=== PATIENT | female | born 1995 | race Caucasian/White ===

== ENCOUNTER → 2018-09-12 | Outpatient (CLI) | payer OTHER ==
--- NOTE | 2018-09-12 10:49 | US ---
EXAMINATION TYPE: US transvaginal DATE OF EXAM: 09/12/2018 COMPARISON: NONE CLINICAL HISTORY: N92.8 Irregular Menstruation. TECHNIQUE: . Transvaginal sonographic images of the pelvis were acquired. Date of LMP: About 2 weeks ago EXAM MEASUREMENTS: Uterus: 7.9 x 3.3 x 4.9 cm Endometrial Stripe: 1.0 cm Right Ovary: 4.1 x 2.5 x 3.0 cm Left Ovary: 2.2 x 1.3 x 1.1 cm 1. Uterus: Anteverted Nabothian cysts visualized. Small amount of fluid visualized in cervix 2. Endometrium: wnl 3. Right Ovary: Cystic area visualized measuring 2.1 x 1.8 x 1.7 cm 4. Left Ovary: wnl 5. Bilateral Adnexa: wnl 6. Posterior cul-de-sac: Small amount of free fluid visualized IMPRESSION: 1. Probable functional right ovarian cyst which can be confirmed with follow-up study in 6 weeks. 2. Small amount of free fluid noted.
== END | disposition home or self-care (01) ==
LOC: RADUSWWP 09:56
PROVIDERS: ATTEND Family Medicine
DX: N92.6 Irregular menstruation, unspecified (principal)
CPT/HCPCS: 76830

== ENCOUNTER 2019-11-04 05:35 | Inpatient (IN) | payer OTHER ==
--- NOTE | 2019-11-03 12:24 | P.HPOB ---
History of Present Illness H&P Date: 11/03/19 Chief Complaint: Requested induction of labor. This patient is a pleasant 24-year-old 1 para 0 female estimated date of confinement 11/11/2019 estimated gestational age 39-0/7 weeks who presents to labor and delivery for requested induction of labor. Patient's care has been uncomplicated. She is being followed for large for gestational age but most recent ultrasound approximately 4 days ago shows estimated weight of 8 lbs. 7 oz. Patient has requested induction of labor at this time. Review of Systems Genitourinary: Reports Menstruation: Reports amenorrhea Past Medical History Past Medical History: No Reported History History of Any Multi-Drug Resistant Organisms: None Reported Past Surgical History: Adenoidectomy Past Psychological History: No Psychological Hx Reported Smoking Status: Never smoker Past Alcohol Use History: None Reported Past Drug Use History: None Reported Medications and Allergies Home Medications Medication Instructions Recorded Confirmed Type No Known Home Medications 02/21/15 02/21/15 History Allergies Allergy/AdvReac Type Severity Reaction Status Date / Time No Known Allergies Allergy Verified 02/21/15 19:06 Exam - OBG Physical Exam Abdomen: bowel sounds normal, no diffuse tenderness, no bruit present, no guarding noted, no hepatomegaly, no splenomegaly, no mass Vulva: both: normal Vagina: normal moisture, no discharge Cervix: no lesion (Cervix in the office is 2 cm dilated 50% effaced -2 station.), no discharge Uterus: enlarged (Fundal height 39 cm) Results blood work shows she is A positive, rubella immune, RPR nonreactive, hepatitis B negative, HIV is nonreactive, Glucola was normal, group B strep was negative, ultrasound on October 30 showed 8 lbs. 7 oz. Assessment and Plan Assessment: This is a pleasant 24-year-old 1 para 0 female 39-0/7 weeks gestation who presents to labor and delivery for requested induction of labor. Plan is induction of labor and anticipate vaginal delivery. (1) 39 weeks gestation of Status: Acute Code(s): Z3A.39 - 39 WEEKS GESTATION OF SNOMED Code(s): 70256611 (2) Elective induction of labor planned Status: Acute Code(s): UHV2789 - SNOMED Code(s): 971018836
[2019-11-04] MEDS ORDERED: OXYTOCIN 30 UNITS/500 ML NS 30 UNIT in SALINE 1 500ML.BAG IV SCH (05:51)
[2019-11-04] MEDS ORDERED: METHYLERGONOVINE 0.2 MG/ML 1 ML AMP IM PRN (05:51)
[2019-11-04] MEDS ORDERED: LIDOCAINE 0.5% (PF) 5 MG/ML (50 ML SDV) SQ PRN (05:51)
[2019-11-04] MEDS ORDERED: OXYTOCIN 10 UNIT/ML 1 ML VIAL IM PRN (05:51)
[2019-11-04] MEDS ORDERED: CARBOPROST TROMETHAMINE 250 MCG/ML 1 ML AMP IM PRN (05:51)
[2019-11-04] MEDS ORDERED: TERBUTALINE 1 MG/ML VIAL SQ PRN (05:51)
[2019-11-04] MEDS: LACTATED RINGERS 1,000 ML IV SCH ×2 (06:11→13:48)
[2019-11-04 06:45] LABS: Basophils % (A) 0 %; Eosinophils # (A) 0.1 k/uL (0-0.7); Eosinophils % (A) 1 %; HCT 33.7 % (34.0-46.0); HGB 11.1 gm/dL (11.4-16.0); Lymphocytes # (A) 2.6 k/uL (1.0-4.8); Lymphocytes % (A) 25 %; MCHC 32.8 g/dL (31.0-37.0); MCV 88.4 fL (80.0-100.0); Monocytes # (A) 0.5 k/uL (0-1.0); Monocytes % (A) 5 %; Neutrophils # (A) 6.8 k/uL (1.3-7.7); Neutrophils % (A) 66 %; Platelet Count 214 k/uL (150-450); RBC 3.82 m/uL (3.80-5.40); RDW 12.7 % (11.5-15.5); WBC 10.2 k/uL (3.8-10.6)
[2019-11-04] MEDS ORDERED: BUTORPHANOL 1 MG/ML 1 ML VIAL IV PRN (11:57)
[2019-11-04] MEDS ORDERED: fentaNYL (PF) 50 MCG/ML 5 ML AMP ONE (13:26)
[2019-11-04] MEDS ORDERED: ROPIVACAINE 5MG/ML 20ML VIAL ONE (13:26)
[2019-11-04] MEDS ORDERED: SODIUM CHLORIDE 0.9% 100 ML BAG ONE (13:26)
[2019-11-04] MEDS ORDERED: SIMETHICONE 80 MG CHEWABLE PO PRN (17:19)
[2019-11-04] MEDS ORDERED: ZOLPIDEM 5 MG TAB PO PRN (17:19)
[2019-11-04] MEDS ORDERED: diphenhydrAMINE 50 MG/ML 1 ML VIAL IVP PRN (17:19)
[2019-11-04] MEDS ORDERED: LANOLIN CREAM 5 GM TUBE TOPICAL PRN (17:19)
[2019-11-04] MEDS ORDERED: ACETAMINOPHEN TAB 325 MG TAB PO PRN (17:19)
[2019-11-04] MEDS ORDERED: BISACODYL 10 MG SUPP RECTAL PRN (17:19)
[2019-11-04] MEDS ORDERED: HYDROCORTISONE 2.5% RECTAL CREAM 30 GM TUBE RECTAL PRN (17:19)
[2019-11-04] MEDS ORDERED: diphenhydrAMINE 25 MG CAP PO PRN (17:19)
[2019-11-04] MEDS ORDERED: BENZOCAINE/MENTHOL SPRAY 1 GM/SPRAY AEROSOL TOPICAL PRN (17:19)
[2019-11-04] MEDS ORDERED: OXYTOCIN 20 UNITS/1000 ML NS 1,000 ML IV SCH (17:19)
[2019-11-04] MEDS ORDERED: WITCH HAZEL 1 EACH MED..PAD TOPICAL PRN (17:19)
--- NOTE | 2019-11-04 17:28 | P.PROBDLV ---
Vaginal Delivery Note - . Vaginal Delivery Note: Normal spontaneous vaginal delivery viable male infant Apgars 8 and 9 delivery time is 1657 hrs. Please see dictated H&P for intimate details of this patient's admission. Brief summary is a pleasant 24-year-old 1 para 0 female 39 weeks gestation admitted to labor and delivery for requested induction of labor. On admission patient's to banner dilated has artificial rupture membranes for clear fluid. Labor is induced with Pitocin per protocol. Patient's labor progresses she does get an epidural for pain control. Patient gets to complete pushes for approximately 30 minutes. Posterior perineum was constricted therefore infiltration 1% lidocaine is a second degree episiotomy is made. We then have controlled delivery of the infant's head over the perineum. There is a loose nuchal cord. Mouth and nares are bulb suctioned. With gentle downward traction we then have delivery the anterior posterior shoulder and rest this 's body. This is a vigorous viable male . Apgars are 8 and 9 delivery time is 1657 hrs. After delivery of the the is late the mother's abdomen. Cord is allowed to stop pulsating, it is then doubly clamped and cut. Patient did have a proximal a 1 cm benign nevus of her perineum and I discussed with her removing this and she had anesthesia and therefore this was removed with a 15 blade scalpel and 2 sutures of 4-0 Vicryl. With this done the placenta spontaneously delivered intact inspection of the perineum shows a second-degree laceration is repaired with 3-0 Vicryl usual fashion excellent reapproximation is noted. This completed final inspection shows no defects. All counts correct 3. Infant and mother stable delivery room. There are no complications.
[2019-11-05] MEDS: IBUPROFEN 600 MG TAB PO PRN (03:03)
[2019-11-05] MEDS: SENNOSIDES-DOCUSATE SODIUM 1 EACH TAB PO SCH ×4 (04:03→19:53)
--- NOTE | 2019-11-05 06:55 | P.PNOBGVD ---
Subjective - Subjective Patient reports: Reports appetite normal, Reports voiding normally, Reports pain well controlled, Reports ambulating normally : doing well Objective - Latest Vital Signs Latest vital signs: Vital Signs Temp Pulse Resp BP 11/05/19 04:00 98.3 F 90 16 118/65 11/05/19 00:00 98.2 F 120 H 16 116/60 11/04/19 20:00 98.2 F 100 16 114/59 11/04/19 19:17 98.2 F 100 16 114/59 11/04/19 18:47 98.4 F 93 16 125/63 11/04/19 18:17 87 16 112/57 11/04/19 18:02 87 16 126/59 11/04/19 17:47 90 16 113/59 11/04/19 17:32 98.2 F 98 16 105/59 11/04/19 17:17 99 16 108/55 Intake and Output 11/04/19 11/04/19 11/05/19 14:59 22:59 06:59 Other: # Voids 1 1 1 - Exam Lungs: bilateral: normal Chest: Normal S1, Normal S2 Extremities: Present: normal Abdomen: Present: normal appearance, soft Uterus: Present: normal, firm Assessment and Plan Assessment: Post day #1. Patient is resting without complaints. She wishes to go home. Vital signs are stable she is afebrile. Uterus is firm nontender and she is having normal lochia. My impression is a normal course. Plan is to continue routine care discharge home later today. (1) 39 weeks gestation of Current Visit: No Status: Acute Code(s): Z3A.39 - 39 WEEKS GESTATION OF SNOMED Code(s): 60450497 (2) Elective induction of labor planned Current Visit: No Status: Acute Code(s): UTC2979 - SNOMED Code(s): 561586608
--- NOTE | 2019-11-05 06:58 | P.DS ---
Providers Date of admission: 11/04/19 05:35 Expected date of discharge: 11/05/19 Attending physician: Jean Ford Primary care physician: Stated None - Discharge Diagnosis(es) (1) 39 weeks gestation of Current Visit: No Status: Acute (2) Elective induction of labor planned Current Visit: No Status: Acute Hospital Course: Please see dictated H&P for intimate details of this patient's admission. Brief summary this is a pleasant 24-year-old 1 para 0 female 39 weeks gestation admitted to labor and delivery for induction of labor. Patient is admitted she undergoes uncomplicated induction of labor was on have a vaginal delivery viable male . Please see dictated delivery note. day #1 patient without complaints she wishes to go home. Patient's felt be stable for discharge home follow up with me in 1 week for suture removal on her her knee him and then 6 weeks for check. Procedures: Induction of labor normal vaginal delivery Patient Condition at Discharge: Good Plan - Discharge Summary New Discharge Prescriptions: New Ibuprofen [Motrin] 600 mg PO Q6HR PRN #30 tab PRN Reason: Mild Pain Or Fever >= 100.5 No Action Pnv,Calcium 72/Iron/Folic Acid [ Plus Tablet] 1 tab PO DAILY Discharge Medication List Pnv,Calcium 72/Iron/Folic Acid [ Plus Tablet] 1 tab PO DAILY 11/04/19 [History] Ibuprofen [Motrin] 600 mg PO Q6HR PRN #30 tab 11/05/19 [Rx] Follow up Appointment(s)/Referral(s): Jean Ford MD [STAFF PHYSICIAN] - 12/22/19 10:45 am (Patient also see me in approximately 1 week for suture removal on her perineum.) Patient Instructions/Handouts: Vaginal Delivery (DC) Activity/Diet/Wound Care/Special Instructions: No intercourse or anything per vagina for 6 weeks. Please call if any fever, chills, excessive vaginal bleeding, and/or abdominal pain. Discharge Disposition: HOME SELF-CARE
[2019-11-06] MEDS: IBUPROFEN 600 MG TAB PO PRN ×2 (00:08→07:32)
--- NOTE | 2019-11-06 06:33 | P.PNOBGVD ---
Subjective - Subjective Patient reports: Reports appetite normal, Reports voiding normally, Reports pain well controlled, Reports ambulating normally : doing well Objective - Latest Vital Signs Latest vital signs: Vital Signs Temp Pulse Resp BP 11/06/19 00:00 98.7 F 75 16 115/66 11/05/19 16:00 98.1 F 76 16 113/70 11/05/19 08:00 98.1 F 73 16 110/72 Intake and Output 11/05/19 11/05/19 11/06/19 14:59 22:59 06:59 Other: # Voids 1 2 1 - Exam Lungs: bilateral: normal Chest: Normal S1, Normal S2 Extremities: Present: normal Abdomen: Present: normal appearance, soft Uterus: Present: normal, firm Assessment and Plan Assessment: day #2. Patient is resting without complaints. She elected to stay until today. Vital signs are stable she is afebrile. Uterus is firm nontender she's having normal lochia. My impression is normal course. Plan is to continue routine care discharge home later today (1) 39 weeks gestation of Current Visit: No Status: Acute Code(s): Z3A.39 - 39 WEEKS GESTATION OF SNOMED Code(s): 80521105 (2) Elective induction of labor planned Current Visit: No Status: Acute Code(s): XPC2470 - SNOMED Code(s): 897287086
[2019-11-06] MEDS: SENNOSIDES-DOCUSATE SODIUM 1 EACH TAB PO SCH (07:31)
[2019-11-06 07:43] VITALS: BP 119/68; PULSE 79; RESP 18; TEMP 97.9
== END 2019-11-06 10:35 | disposition home or self-care (01) | DRG 807 ==
LOC: 4FBP 05:35
PROVIDERS: ADMIT Obstetrics & Gynecology; ATTEND Obstetrics & Gynecology
PROC: 0W8NXZZ Division of Female Perineum, External Approach (ICD-10-PCS; principal; 2019-11-04)
PROC: 10E0XZZ Delivery of Products of Conception, External Approach (ICD-10-PCS; 2019-11-04)
PROC: 10907ZC Drainage of Amniotic Fluid, Therapeutic from Products of Conception, Via Natural or Artificial Opening (ICD-10-PCS; 2019-11-04)
PROC: 3E033VJ Introduction of Other Hormone into Peripheral Vein, Percutaneous Approach (ICD-10-PCS; 2019-11-04)
PROC: 0HB9XZZ Excision of Perineum Skin, External Approach (ICD-10-PCS; 2019-11-04)
DX: O69.81X0 Labor and delivery complicated by cord around neck, without compression, not applicable or unspecified (principal); Z37.0 Single live birth; O36.63X0 Maternal care for excessive fetal growth, third trimester, not applicable or unspecified; Z3A.39 39 weeks gestation of pregnancy; D22.5 Melanocytic nevi of trunk
CPT/HCPCS: 85025; 86850; 86900; 86901

== ENCOUNTER 2023-11-19 09:11 | Inpatient (IN) | payer OTHER ==
[2023-11-19] MEDS ORDERED: TERBUTALINE 1 MG/ML VIAL SQ PRN (09:54)
[2023-11-19] MEDS ORDERED: OXYTOCIN 10 UNIT/ML 1 ML VIAL IM PRN (09:54)
[2023-11-19] MEDS ORDERED: miSOPROStoL 200 MCG TAB PO PRN (09:54)
[2023-11-19] MEDS ORDERED: TRANEXAMIC 1,000 MG/100ML-NACL 1,000 MG in EMPTY BAG 1 BAG IV PRN (09:54)
[2023-11-19] MEDS ORDERED: METHYLERGONOVINE 0.2 MG/ML 1 ML AMP IM PRN (09:54)
[2023-11-19] MEDS ORDERED: CARBOPROST TROMETHAMINE 250 MCG/ML 1 ML AMP IM PRN (09:54)
[2023-11-19] MEDS: LACTATED RINGERS 1,000 ML IV SCH (10:20)
[2023-11-19 10:44] LABS: Basophils % (A) 0 %; Eosinophils % (A) 0 %; HCT 37.6 % (34.0-46.0); HGB 12.5 gm/dL (11.4-16.0); Lymphocytes # (A) 1.9 k/uL (1.0-4.8); Lymphocytes % (A) 17 %; MCH 28.7 pg (25.0-35.0); MCHC 33.2 g/dL (31.0-37.0); MCV 86.5 fL (80.0-100.0); Mean Platelet Volume 7.9; Monocytes # (A) 0.4 k/uL (0-1.0); Monocytes % (A) 4 %; Neutrophils # (A) 8.3 k/uL (1.3-7.7); Neutrophils % (A) 77 %; Platelet Count 241 k/uL (150-450); RBC 4.34 m/uL (3.80-5.40); RDW 13.3 % (11.5-15.5); WBC 10.8 k/uL (3.8-10.6)
[2023-11-19] MEDS ORDERED: ROPIVACAINE 5 MG/ML 30 ML VIAL ONE (11:08)
[2023-11-19] MEDS ORDERED: fentaNYL (PF) 50 MCG/ML 5 ML AMP ONE (11:08)
[2023-11-19] MEDS ORDERED: SODIUM CHLORIDE 0.9% 250 ML BAG ONE (11:08)
--- NOTE | 2023-11-19 12:42 | P.HPOB ---
History of Present Illness H&P Date: 11/19/23 Chief Complaint: Contractions This is a 28-year-old female 3 para 1 with an estimated date of confinement of 11/26/2023, estimated gestational age of 39 weeks, who presents to labor and delivery with complaints of contractions that became stronger today. care has been with Dr. Ford. She was diagnosed with questionable low lying placenta at her 20 week ultrasound however this did resolve. She also had a slightly elevated one-hour Glucola but 3 hour Glucola was within normal limits. She admits to good movement and denies any rupture of membranes. labs: Group B streptococcus-negative Blood type-A+ Antibody screen-negative Rubella-immune Hepatitis B surface antigen-negative HIV-negative RPR-nonreactive Hepatitis C antibody-nonreactive Random glucose-71 Hepatitis B surface antigen-negative GC/chlamydia/Trichomonas-negative One hour Glucola-141, three-hour Glucola-within normal limits Obstetrical history: . History of 1 vaginal delivery at term with no complications. History of 1 miscarriage. Gynecologic history: No history of sexually transmitted diseases. Social history: She is . She works full-time as a [employer] manager. Review of Systems Constitutional: Denies chills, Denies fever Eyes: denies blurred vision, denies pain Ears, nose, mouth and throat: Denies headache, Denies sore throat Cardiovascular: Denies chest pain, Denies shortness of breath Respiratory: Denies cough Gastrointestinal: Reports abdominal pain (Contractions) Genitourinary: Reports pelvic pain, Reports Musculoskeletal: Reports low back pain Integumentary: Denies pruritus, Denies rash Neurological: Denies numbness, Denies weakness Psychiatric: Reports anxiety, Denies depression Past Medical History Past Medical History: No Reported History Additional Past Medical History / Comment(s): Previous term vaginal delivery 8 lbs. 9 oz. baby boy. History of Any Multi-Drug Resistant Organisms: None Reported Past Surgical History: Adenoidectomy Additional Past Surgical History / Comment(s): ear tubes placed x 2 Past Anesthesia/Blood Transfusion Reactions: No Reported Reaction Past Psychological History: Anxiety Smoking Status: Never smoker Past Alcohol Use History: None Reported Past Drug Use History: None Reported - Past Family History Father Family Medical History: No Reported History Sister(s) Family Medical History: Diabetes Mellitus Medications and Allergies Home Medications Medication Instructions Recorded Confirmed Type Vit No.180/Iron/Folic 1 tab PO DAILY 11/04/19 11/19/23 History [ Plus Tablet] Allergies Allergy/AdvReac Type Severity Reaction Status Date / Time No Known Allergies Allergy Verified 11/19/23 09:26 Exam Osteopathic Statement: *. No significant issues noted on an osteopathic structural exam other than those noted in the History and Physical/Consult. Vital Signs Temp Pulse Resp BP 11/19/23 10:16 96.9 F L 71 17 129/71 Intake and Output 11/18/23 11/19/23 11/19/23 22:59 06:59 14:59 Other: Weight 103.873 kg Gen.: Pleasant well-developed well-nourished gravid female in no acute distress HEENT: Within normal limits Heart: Regular rate and rhythm Lungs: Clear to auscultation bilaterally Abdomen: Cervix: On admission was 5-6 cm. Currently she is 7 cm 90%/-2 station. Artificial rupture membranes is carried out with thin meconium noted. heart tones: Category 1 Contractions: Every 3-5 minutes Extremities: Negative Homans Results Result Diagrams: 11/19/23 10:20 Abnormal Lab Results - Last 24 Hours (Table) 11/19/23 Range/Units 10:20 WBC 10.8 H (3.8-10.6) k/uL Neutrophils # 8.3 H (1.3-7.7) k/uL Assessment and Plan (1) 39 weeks gestation of Current Visit: No Status: Acute Code(s): Z3A.39 - 39 WEEKS GESTATION OF SNOMED Code(s): 85437699 Plan: Admission for active labor. Expectant management. Epidural anesthesia.
[2023-11-19] MEDS: OXYTOCIN 30 UNITS/500 ML NS 30 UNIT in SALINE 1 500ML.BAG IV SCH (15:08)
[2023-11-19] MEDS ORDERED: diphenhydrAMINE 25 MG CAP PO PRN (15:53)
[2023-11-19] MEDS ORDERED: diphenhydrAMINE 50 MG CAP PO PRN (15:53)
[2023-11-19] MEDS ORDERED: SIMETHICONE 80 MG CHEWABLE PO PRN (15:53)
[2023-11-19] MEDS: LIDOCAINE 0.5% (PF) 5 MG/ML (50 ML SDV) SQ PRN (15:53)
[2023-11-19] MEDS ORDERED: diphenhydrAMINE 50 MG/ML 1 ML VIAL IVP PRN ×2 (15:53)
[2023-11-19] MEDS ORDERED: ACETAMINOPHEN TAB 325 MG TAB PO PRN (15:53)
[2023-11-19] MEDS ORDERED: ZOLPIDEM 5 MG TAB PO PRN (15:53)
[2023-11-19] MEDS ORDERED: HYDROCORTISONE 2.5% RECTAL CREAM 30 GM TUBE RECTAL PRN (15:53)
[2023-11-19] MEDS ORDERED: LANOLIN CREAM 5 GM TUBE TOPICAL PRN (15:53)
[2023-11-19] MEDS: BENZOCAINE/MENTHOL SPRAY 1 GM/SPRAY AEROSOL TOPICAL PRN (16:14)
[2023-11-19] MEDS: IBUPROFEN 600 MG TAB PO PRN (16:54)
--- NOTE | 2023-11-19 17:50 | P.PROBDLV ---
Vaginal Delivery Note - . Vaginal Delivery Note: The patient progressed to complete dilation after artificial rupture membranes with thin meconium noted. She did not require any oxytocin. She did receive epidural anesthesia. She pushed for a couple pushes. Infant's head came to a crown. With one further push, the 's head delivered across the perineum followed by the anterior shoulder. Nose and mouth were bulb suctioned. With one further push, the remainder the easily delivered reducing nuchal cord times one around the body with delivery. Infant was placed on mother's abdomen and nose and mouth were again bulb suctioned. Cord was clamped and cut and then was taken to warmer for evaluation. A viable female was noted with scores of 8 at 1 minute and 9 at 5 minutes and weight was 7 lbs. 15 oz. Placenta delivered shortly thereafter, intact, with a three-vessel cord. Uterus contracted fairly well after oxytocin was given and uterine massage was carried out. Her bladder was also drained with a straight cath. A gloved hand was also placed within the uterine cavity to remove any further blood clot and no further pieces of placenta were palpated. Inspection of the perineum revealed a small first-degree perineal laceration. This area was anesthetized with 1% lidocaine and then sutured with 3-0 Vicryl suture in a running locked fashion. Estimated blood loss is approximately 200 mL's. Both mother and are in stable condition. Dr. Johnson was present for delivery due to meconium.
[2023-11-19 20:01] VITALS: RESP 16
[2023-11-19] MEDS: SENNOSIDES-DOCUSATE SODIUM 1 EACH TAB PO SCH (20:04)
[2023-11-20 01:53] VITALS: TEMP 97.8
--- NOTE | 2023-11-20 06:24 | P.PNOBGVD ---
Subjective - Subjective Patient reports: Reports appetite normal, Reports voiding normally, Reports pain well controlled, Reports ambulating normally : doing well Objective - Latest Vital Signs Latest vital signs: Vital Signs Temp Pulse Resp BP Pulse Ox 11/20/23 00:00 97.8 F 72 16 117/76 11/19/23 19:58 97.9 F 66 16 114/78 99 11/19/23 17:10 97.4 F L 93 17 117/61 11/19/23 16:56 83 17 113/64 11/19/23 16:41 76 17 113/56 11/19/23 16:26 81 17 113/56 11/19/23 16:10 87 17 105/56 11/19/23 15:56 83 17 136/60 11/19/23 15:41 90 18 148/68 11/19/23 15:26 100 17 150/65 11/19/23 15:11 98.6 F 93 17 140/84 11/19/23 10:16 96.9 F L 71 17 129/71 Intake and Output 11/19/23 11/19/23 11/20/23 14:59 22:59 06:59 Intake Total 1000 178.133 Output Total 400 440 Balance 600 -261.867 Intake: IV 1000 Intake, IV Titration 178.133 Amount Oxytocin 30 Units/500 ml 178.133 Ns 30 unit In Saline 1 500ml.bag @ Per Protocol IV .Q0M [facility] Rx#:[id number] Output: Urine 400 Straight 400 Output, Quantitative 440 Blood Loss Other: # Voids 2 Weight 103.873 kg - Exam Lungs: bilateral: normal Chest: Normal S1, Normal S2 Extremities: Present: normal Abdomen: Present: normal appearance, soft Uterus: Present: normal, firm - Labs Labs: Abnormal Lab Results - Last 24 Hours (Table) 11/19/23 Range/Units 10:20 WBC 10.8 H (3.8-10.6) k/uL Neutrophils # 8.3 H (1.3-7.7) k/uL Assessment and Plan Assessment: day #1. Patient is resting without complaints and wishes to go home. Vital signs are stable she's afebrile. Uterus is firm nontender and she is having normal lochia. CBC is pending at the time of this dictation. I impression this is a normal course. Plan is to continue routine care, check a CBC, discharge home later today. (1) Normal vaginal delivery Current Visit: Yes Status: Acute Code(s): O80 - ENCOUNTER FOR FULL-TERM UNCOMPLICATED DELIVERY SNOMED Code(s): 95300397
--- NOTE | 2023-11-20 06:28 | P.DS ---
Providers Date of admission: 11/19/23 09:51 Expected date of discharge: 11/20/23 Attending physician: Jean Ford Primary care physician: Stated None - Discharge Diagnosis(es) (1) Normal vaginal delivery Current Visit: Yes Status: Acute Hospital Course: Please see dictated H&P and delivery note per Dr. Esteban on this patient's admission. In brief summary this a pleasant 28-year-old 3 para 1 female 39-0/7 weeks gestation admitted to labor and delivery in active labor. Patient quickly goes on to have a vaginal delivery of viable female infant. Please see dictated delivery note. Was day #1 patient wishes to go home was felt be stable for discharge home follow up with me in 6 weeks. Procedures: Normal spontaneous vaginal delivery Patient Condition at Discharge: Good Plan - Discharge Summary New Discharge Prescriptions: New Ibuprofen [Motrin] 600 mg PO Q6HR PRN #40 tab PRN Reason: Mild Pain (Scale 1 To 3) No Action Vit No.180/Iron/Folic [ Plus Tablet] 1 tab PO DAILY Discharge Medication List Vit No.180/Iron/Folic [ Plus Tablet] 1 tab PO DAILY 11/04/19 [History] Ibuprofen [Motrin] 600 mg PO Q6HR PRN #40 tab 11/20/23 [Rx] Follow up Appointment(s)/Referral(s): Jean Ford MD [STAFF PHYSICIAN] - 01/01/24 9:00 am Patient Instructions/Handouts: Vaginal Delivery (DC) Activity/Diet/Wound Care/Special Instructions: No intercourse or anything per vagina for 6 weeks. Please call if any fever, chills, excessive vaginal bleeding, and/or abdominal pain Discharge Disposition: HOME SELF-CARE
[2023-11-20 07:35] VITALS: BP 124/74; PULSE 66
[2023-11-20 07:52] LABS: Basophils % (A) 0 %; Eosinophils # (A) 0.1 k/uL (0-0.7); Eosinophils % (A) 1 %; HCT 33.3 % (34.0-46.0); HGB 10.9 gm/dL (11.4-16.0); Lymphocytes # (A) 1.6 k/uL (1.0-4.8); Lymphocytes % (A) 13 %; MCH 28.6 pg (25.0-35.0); MCHC 32.8 g/dL (31.0-37.0); Monocytes # (A) 0.4 k/uL (0-1.0); Monocytes % (A) 4 %; Neutrophils # (A) 9.6 k/uL (1.3-7.7); Neutrophils % (A) 81 %; Platelet Count 208 k/uL (150-450); RBC 3.82 m/uL (3.80-5.40); RDW 13.3 % (11.5-15.5); WBC 11.9 k/uL (3.8-10.6)
[2023-11-20] MEDS: PRENATAL VIT-IRON-FOLIC ACID 1 EACH TABLET PO SCH (08:25)
--- NOTE | 2023-11-20 09:03 | P.MSEPDOC ---
Presenting Problems - Arrival Data Date of Arrival on Unit: 11/19/23 Time of Arrival on Unit: 09:56 Mode of Transport: Ambulatory - Complaint OB-Reason for Admission/Chief Complaint: Possible Onset of Labor Comment: pt presents to triage for possible labor, ctx's every 5-6 min and getting more intense Medical History - Information : 3 Para: 1 Term: 1 : 0 Abortions: Spontaneous or Elective: 1 Number of Living Children: 1 - Gestational Age Gestational Age by [place] (wks/days): 39 Weeks and 0 Days Review of Systems - Review of Systems Constitutional: No problems Breast: No problems ENT: No problems Cardiovascular: No problems Respiratory: No problems Gastrointestinal: No problems Genitourinary: No problems Musculoskeletal: No problems Neurological: No problems Skin: No problems Vital Signs - Temperature Temperature: 97.8 F Temperature Source: Oral - Pulse Right Brachial Pulse Rate: 66 Pulse Assessment Method: Pulse Oximetry - Respirations Respiratory Rate: 16 Oxygen Delivery Method: Room Air O2 Sat by Pulse Oximetry: 97 - Blood Pressure Right Arm Blood Pressure: 124/74 Blood Pressure Mean: 90 Blood Pressure Source: Automatic Cuff Medical Screen Scoring - Cervical Exam Dilation (cm): 5.5 Effacement (%): 80 Station: -2 Membranes: Intact - Uterine Contractions Frequency From (mins): 5 Frequency To (mins): 6 Duration From (seconds): 40 Duration To (seconds): 60 Intensity: Moderate Resting: Soft to palpation - Assessment - Baby A Baseline FHR: 130 Heart Rate - NICHD Category: Category I (Normal) NST: Reactive Physician Notification - Physician Notified Physician Notified Date: 11/19/23 Physician Notified Time: 09:50 Physician: Tali Esteban Order Received: Yes - Notification Comment Comment: admitted for labor Maternal Triage Index - Maternal Triage Index Presenting for scheduled procedure w/no complaint: No - Stat/Priority 1 Stat Priority 1: No - Urgent/Priority 2 Urgent Priority 2: No - Prompt/Priority 3 Prompt Priority 3: Yes Criteria Met for Priority 3: pt presents to triage for possible labor, ctx's every 5-6 min and getting more intense Disposition - Disposition OB Disposition: LDRP Suite, Discharge to home, Written follow up instructions reviewed Discharge Date: 11/19/23 Discharge Time: 09:56 I agree with the RN Medical Screening Exam: Yes Case reviewed; plan agreed upon as documented in EMR&OBIX.: Yes Diagnosis: ENCOUNTER FOR FULL-TERM UNCOMPLICATED DELIVERY
== END 2023-11-20 15:30 | disposition home or self-care (01) | DRG 807 ==
LOC: FBPOP 09:11 → 4FBP 09:51
PROVIDERS: ADMIT Obstetrics & Gynecology; ATTEND Obstetrics & Gynecology
PROC: 10E0XZZ Delivery of Products of Conception, External Approach (ICD-10-PCS; principal; 2023-11-19)
PROC: 0HQ9XZZ Repair Perineum Skin, External Approach (ICD-10-PCS; principal; 2023-11-19)
PROC: 10907ZC Drainage of Amniotic Fluid, Therapeutic from Products of Conception, Via Natural or Artificial Opening (ICD-10-PCS; principal; 2023-11-19)
DX: O77.0 Labor and delivery complicated by meconium in amniotic fluid (principal); O99.344 Other mental disorders complicating childbirth; F41.9 Anxiety disorder, unspecified; O69.81X0 Labor and delivery complicated by cord around neck, without compression, not applicable or unspecified; O70.0 First degree perineal laceration during delivery; Z3A.39 39 weeks gestation of pregnancy; Z37.0 Single live birth
CPT/HCPCS: 59025; 85025; 86850; 86900; 86901; 99213

== ENCOUNTER 2023-11-23 13:08 | Inpatient (IN) | payer OTHER ==
--- NOTE | 2023-11-23 13:40 | ED ---
General Adult HPI - General Chief complaint: Abdominal Pain Stated complaint: rib/back pain Time Seen by Provider: 11/23/23 13:27 Source: patient, RN notes reviewed, old records reviewed Mode of arrival: ambulatory Limitations: no limitations - History of Present Illness Initial comments: 28-year-old female 4 days status post vaginal delivery presenting with abdominal pain. Patient states that she had abdominal pain throughout the second half of her related to eating. Over the past several days this has significantly worsened. She has pain in the epigastric, right upper quadrant and this pain wraps around to her back. She's had several episodes of vomiting. Pain is severe after eating and then improves over time. She states she's had normal bowel movements. She states vaginal eating has decreased and she has no urinary symptoms. - Related Data Home Medications Medication Instructions Recorded Confirmed Vit No.180/Iron/Folic 1 tab PO DAILY 11/04/19 11/19/23 [ Plus Tablet] Previous Rx's Medication Instructions Recorded Ibuprofen [Motrin] 600 mg PO Q6HR PRN #40 tab 11/20/23 Allergies Allergy/AdvReac Type Severity Reaction Status Date / Time No Known Allergies Allergy Verified 11/19/23 09:26 Review of Systems ROS Statement: Those systems with pertinent positive or pertinent negative responses have been documented in the HPI. ROS Other: All systems not noted in ROS Statement are negative. Past Medical History Past Medical History: No Reported History Additional Past Medical History / Comment(s): Previous term vaginal delivery 8 lbs. 9 oz. baby boy. History of Any Multi-Drug Resistant Organisms: None Reported Past Surgical History: Adenoidectomy Additional Past Surgical History / Comment(s): ear tubes placed x 2 Past Anesthesia/Blood Transfusion Reactions: No Reported Reaction Past Psychological History: Anxiety Smoking Status: Never smoker Past Alcohol Use History: None Reported Past Drug Use History: None Reported - Past Family History Father Family Medical History: No Reported History Sister(s) Family Medical History: Diabetes Mellitus General Exam Limitations: no limitations General appearance: alert, in no apparent distress Head exam: Present: atraumatic, normocephalic Eye exam: Present: normal appearance, PERRL ENT exam: Present: normal exam Neck exam: Present: normal inspection. Absent: tenderness, meningismus Respiratory exam: Present: normal lung sounds bilaterally. Absent: respiratory distress, wheezes Cardiovascular Exam: Present: regular rate, normal rhythm GI/Abdominal exam: Present: tenderness (Gastric right upper quadrant). Absent: distended Extremities exam: Present: normal inspection, normal capillary refill. Absent: calf tenderness Neurological exam: Present: alert, oriented X3, CN II-XII intact. Absent: motor sensory deficit Psychiatric exam: Present: normal affect, normal mood Skin exam: Present: diaphoretic Course Vital Signs 11/23/23 11/23/23 13:19 16:53 Temperature 98.3 F 98.8 F Pulse Rate 91 90 Respiratory 20 17 Rate Blood Pressure 119/78 108/70 O2 Sat by Pulse 99 96 Oximetry Medical Decision Making - Medical Decision Making Was pt. sent in by a medical professional or institution (, PA, EDUCATION FACULTY MEMBER, urgent care, hospital, or snf...) When possible be specific @ -No Did you speak to anyone other than the patient for history (EMS, parent, family, police, friend...)? What history was obtained from this source @ -No Did you review nursing and triage notes (agree or disagree)? Why? @ -I reviewed and agree with nursing and triage notes Were old charts reviewed (outside hosp., previous admission, EMS record, old EKG, old radiological studies, urgent care reports/EKG's, snf records)? Report findings @ -No old charts were reviewed Differential Diagnosis (chest pain, altered mental status, abdominal pain women, abdominal pain men, vaginal bleeding, weakness, fever, dyspnea, syncope, headache, dizziness, GI bleed, back pain, seizure, CVA, palpatations, mental health, musculoskeletal)? @ -Differential Abdominal Pain Women: Appendicitis, Cholecystitis, diverticulosis, ischemic bowel, pancreatitis, hepatitis, UTI, gastroenteritis, AAA, incarcerated hernia, bowel obstruction, constipation, inflammatory bowel, hepatitis, peptic ulcer disease, splenic infarction, perforated viscus, vulvitis, ovarian torsion, PID, kidney stone, placenta abruption, this is not meant to be an all-inclusive list EKG interpreted by me (3pts min.). @ -[Does rhythm rate of 66, VT interval 140, QRS duration 83, QTC [address] segment elevation. X-rays interpreted by me (1pt min.). @ -None done CT interpreted by me (1pt min.). @ -None done U/S interpreted by me (1pt. min.). @ -Ultrasound showing couple gallstones without definitive signs of acute cholecystitis. What testing was considered but not performed or refused? (CT, X-rays, U/S, labs)? Why? @ -None What meds were considered but not given or refused? Why? @ -None Did you discuss the management of the patient with other professionals (professionals i.e. Dr., PA, EDUCATION FACULTY MEMBER, lab, RT, psych nurse, social media intern, instrument specialist, teacher, penal officer, top case assembler)? Give summary @ -[Dr. Wagner will admit Was smoking cessation discussed for >3mins.? @ -No Was critical care preformed (if so, how long)? @ -No Were there social determinants of health that impacted care today? How? (Homelessness, low income, unemployed, alcoholism, drug addiction, transportation, low edu. Level, literacy, decrease access to med. care, alf, rehab)? @ -No Was there de-escalation of care discussed even if they declined (Discuss DNR or withdrawal of care, Hospice)? DNR status @ -No What co-morbidities impacted this encounter? (DM, HTN, Smoking, COPD, CAD, Cancer, CVA, ARF, Chemo, Hep., AIDS, mental health diagnosis, sleep apnea, morbid obesity)? @ -[4 Days status post uncomplicated vaginal delivery Was patient admitted / discharged? Hospital course, mention meds given and route, prescriptions, significant lab abnormalities, going to OR and other pertinent info. @ -[28-year-old female with postprandial abdominal pain over the past several months which significantly worsened over the past several days. Patient has mariajose th epigastric and right upper quadrant tenderness. There is associated vomiting. Concern for gallbladder pathology. Gallbladder ultrasound shows no gallstones. This is consistent with significant symptomatic gallstones and concern for acute cholecystitis. She has a leukocytosis at 12. She has mild transaminitis. Her blood pressure is normal without hypertension. She has no headache. No dyspnea. No lower extremity edema. No concern for preeclampsia at this time. Vision admitted for surgical evaluation of symptom gallstones and acute cholecystitis Undiagnosed new problem with uncertain prognosis? @ -No Drug Therapy requiring intensive monitoring for toxicity (Heparin, Nitro, Insulin, Cardizem)? @ -No Were any procedures done? @ -No Diagnosis/symptom? @ Symptomatic gallstones, acute cholecystitis Acute, or Chronic, or Acute on Chronic? @ acute Uncomplicated (without systemic symptoms) or Complicated (systemic symptoms)? @ -default Side effects of treatment? @ -No Exacerbation, Progression, or Severe Exacerbation? @ -No Poses a threat to life or bodily function? How? (Chest pain, [place], [place], pneumonia, PE, COPD, DKA, ARF, appy, cholecystitis, CVA, Diverticulitis, Homicidal, Suicidal, threat to staff... and all critical care pts) @ -[yes, sepsis - Lab Data Result diagrams: 11/23/23 14:06 11/23/23 14:06 Lab Results 11/23/23 11/23/23 11/23/23 Range/Units 14:06 14:06 14:06 WBC 12.6 H (3.8-10.6) k/uL RBC 4.10 (3.80-5.40) m/uL Hgb 12.2 (11.4-16.0) gm/dL Hct 35.8 (34.0-46.0) % MCV 87.3 (80.0-100.0) fL MCH 29.7 (25.0-35.0) pg MCHC 34.0 (31.0-37.0) g/dL RDW 13.6 (11.5-15.5) % Plt Count 291 (150-450) k/uL MPV 7.9 Neutrophils % 84 % Lymphocytes % 10 % Monocytes % 3 % Eosinophils % 1 % Basophils % 0 % Neutrophils # 10.6 H (1.3-7.7) k/uL Lymphocytes # 1.3 (1.0-4.8) k/uL Monocytes # 0.4 (0-1.0) k/uL Eosinophils # 0.1 (0-0.7) k/uL Basophils # 0.0 (0-0.2) k/uL Hypochromasia Slight PT 9.5 L (10.0-12.5) sec INR 0.8 (<1.2) APTT 23.0 (22.0-30.0) sec Sodium 141 (137-145) mmol/L Potassium 4.1 (3.5-5.1) mmol/L Chloride 112 H (98-107) mmol/L Carbon Dioxide 21 L (22-30) mmol/L Anion Gap 8 mmol/L BUN 10 (7-17) mg/dL Creatinine 0.51 L (0.52-1.04) mg/dL Est GFR (CKD-EPI)AfAm >90 (>60 ml/min/1.73 sqM) Est GFR (CKD-EPI)NonAf >90 (>60 ml/min/1.73 sqM) Glucose 79 (74-99) mg/dL Plasma Lactic Acid Isaías (0.7-2.0) mmol/L Calcium 9.0 (8.4-10.2) mg/dL Total Bilirubin 0.9 (0.2-1.3) mg/dL AST 145 H (14-36) U/L ALT 129 H (4-34) U/L Alkaline Phosphatase 271 H (38-126) U/L Troponin I (0.000-0.034) ng/mL Total Protein 6.7 (6.3-8.2) g/dL Albumin 3.7 (3.5-5.0) g/dL Amylase 61 (30-110) U/L Lipase 160 (23-300) U/L 11/23/23 11/23/23 Range/Units 14:06 14:06 WBC (3.8-10.6) k/uL RBC (3.80-5.40) m/uL Hgb (11.4-16.0) gm/dL Hct (34.0-46.0) % MCV (80.0-100.0) fL MCH (25.0-35.0) pg MCHC (31.0-37.0) g/dL RDW (11.5-15.5) % Plt Count (150-450) k/uL MPV Neutrophils % % Lymphocytes % % Monocytes % % Eosinophils % % Basophils % % Neutrophils # (1.3-7.7) k/uL Lymphocytes # (1.0-4.8) k/uL Monocytes # (0-1.0) k/uL Eosinophils # (0-0.7) k/uL Basophils # (0-0.2) k/uL Hypochromasia PT (10.0-12.5) sec INR (<1.2) APTT (22.0-30.0) sec Sodium (137-145) mmol/L Potassium (3.5-5.1) mmol/L Chloride (98-107) mmol/L Carbon Dioxide (22-30) mmol/L Anion Gap mmol/L BUN (7-17) mg/dL Creatinine (0.52-1.04) mg/dL Est GFR (CKD-EPI)AfAm (>60 ml/min/1.73 sqM) Est GFR (CKD-EPI)NonAf (>60 ml/min/1.73 sqM) Glucose (74-99) mg/dL Plasma Lactic Acid Isaías 0.8 (0.7-2.0) mmol/L Calcium (8.4-10.2) mg/dL Total Bilirubin (0.2-1.3) mg/dL AST (14-36) U/L ALT (4-34) U/L Alkaline Phosphatase (38-126) U/L Troponin I <0.012 (0.000-0.034) ng/mL Total Protein (6.3-8.2) g/dL Albumin (3.5-5.0) g/dL Amylase (30-110) U/L Lipase (23-300) U/L Disposition Clinical Impression: Acute cholecystitis Disposition: ADMITTED IP TO THIS HOSP Condition: Stable Is patient prescribed a controlled substance at d/c from ED?: No Referrals: Randall Trejo MD [Primary Care Provider] - 1-2 days Time of Disposition: 17:49
[2023-11-23] MEDS: ONDANSETRON 4 MG/2 ML VIAL IVP STA (14:16)
[2023-11-23] MEDS: SODIUM CHLORIDE 0.9% 1,000 ML IV STA (14:17)
[2023-11-23] MEDS: ACETAMINOPHEN IV (For NPO) 1,000 MG in EMPTY BAG 1 BAG IVPB STA (14:17)
[2023-11-23 14:20] LABS: Basophils % (A) 0 %; Eosinophils # (A) 0.1 k/uL (0-0.7); Eosinophils % (A) 1 %; HCT 35.8 % (34.0-46.0); HGB 12.2 gm/dL (11.4-16.0); Hypochromasia Slight; Lymphocytes # (A) 1.3 k/uL (1.0-4.8); Lymphocytes % (A) 10 %; MCH 29.7 pg (25.0-35.0); MCV 87.3 fL (80.0-100.0); Mean Platelet Volume 7.9; Monocytes # (A) 0.4 k/uL (0-1.0); Monocytes % (A) 3 %; Neutrophils # (A) 10.6 k/uL (1.3-7.7); Neutrophils % (A) 84 %; Platelet Count 291 k/uL (150-450); RDW 13.6 % (11.5-15.5); WBC 12.6 k/uL (3.8-10.6)
[2023-11-23 14:27] LABS: ALT 129 U/L (4-34); AST 145 U/L (14-36); African American GFR (CKD) >90 (>60 ml/min/1.73 sqM); Albumin 3.7 g/dL (3.5-5.0); Alkaline Phosphatase 271 U/L (38-126); Amylase 61 U/L (30-110); Anion Gap 8 mmol/L; Blood Urea Nitrogen 10 mg/dL (7-17); Carbon Dioxide 21 mmol/L (22-30); Chloride 112 mmol/L (98-107); Glucose 79 mg/dL (74-99); Lipase 160 U/L (23-300); Non-African American GFR(CKD) >90 (>60 ml/min/1.73 sqM); Potassium 4.1 mmol/L (3.5-5.1); Sodium 141 mmol/L (137-145); Total Bilirubin 0.9 mg/dL (0.2-1.3); Total Protein 6.7 g/dL (6.3-8.2)
[2023-11-23 14:33] LABS: INR 0.8 (<1.2); Prothrombin Time 9.5 sec (10.0-12.5)
--- NOTE | 2023-11-23 15:37 | US ---
EXAMINATION TYPE: US gallbladder DATE OF EXAM: 11/23/2023 COMPARISON: NONE CLINICAL INDICATION: Female, 28 years old with history of epigastric/ruq pain; x 6 months worsening l ast few days; 4 days post . TECHNIQUE: Multiple sonographic images of the right upper quadrant are obtained. FINDINGS: EXAM MEASUREMENTS: Liver Length: 18.1 cm Gallbladder Wall: 0.2 cm CBD: 0.7 cm Right Kidney: 12.0 x 4.5 x 5.4 cm PRESSURE TESTING TECHNICIAN NOTES: Pancreas: wnl Liver: wnl Gallbladder: Multiple small gallstones seen Evidence for sonographic Gonzalez's sign: Yes CBD: wnl Right Kidney: wnl Visualized pancreas within normal limits. Portions obscured by overlying bowel gas. Visualized liver is unremarkable. Gallbladder shows some small mobile gallstones. There is no pericholecystic fluid or abnormal gallbladder wall thickening. Sonographic Gonzalez sign is positive. Common bile duct is minim ally dilated. No right-sided hydronephrosis. IMPRESSION: Gallstones are present. Equivocal secondary findings for acute cholecystitis noted includ ing positive sonographic Gonzalez sign. HIDA scan follow-up up should be considered.
[2023-11-23] MEDS ORDERED: NALOXONE 0.4 MG/ML 1 ML VIAL IV PRN (17:43)
[2023-11-23 17:50] LABS: Appearance,Urine Clear (Clear); Bilirubin,Urine Negative (Negative); Blood,Urine Large (Negative); Color,Urine Yellow; Glucose,Urine (UA) Negative (Negative); Ketones,Urine 3+ (Negative); Leukocyte Esterase,Urine Moderate (Negative); Mucus,Urine Rare /hpf; Nitrite,Urine Negative (Negative); Protein,Urine Trace (Negative); RBC,Urine 150 /hpf (0-5); Specific Gravity,Urine 1.028 (1.001-1.035); Squamous Epithelial Cell,Urine 1 /hpf (0-4); Urobilinogen,Urine <2.0 mg/dL (<2.0); WBC,Urine 30 /hpf (0-5)
[2023-11-23] MEDS: SODIUM CHLORIDE 0.9% 1,000 ML IV SCH (17:56)
--- NOTE | 2023-11-23 18:03 | P.GSHP ---
History of Present Illness H&P Date: 11/23/23 Chief Complaint: Epigastric pain The patient is 4 days post and has had continuous epigastric pain for the last 2 days. She had intermittent pain throughout her . Symptoms worse with eating. LFTs are abnormal. Bile duct reported as minimally dilated. - Constitutional Constitutional: Reports as per HPI - EENT Eyes: bilateral bulging eye (glasses) Ears: deny: decreased hearing - Cardiovascular Cardiovascular: Denies chest pain, Denies dyspnea on exertion - Respiratory Respiratory: Denies cough, Denies dyspnea - Gastrointestinal Gastrointestinal: Reports abdominal pain - Genitourinary (Female) Genitourinary: Denies kidney stones - Menstruation Menstruation: Reports as per HPI - Genitourinary (Male) Genitourinary: Denies hematuria - Musculoskeletal Musculoskeletal: Reports low back pain (mild scoliosis) - Integumentary Integumentary: Denies wounds - Neurological Neurological: Denies seizures - Psychiatric Psychiatric: Reports anxiety - Endocrine Endocrine: Denies high blood sugars Past Medical History Past Medical History: No Reported History Additional Past Medical History / Comment(s): Previous term vaginal delivery 8 lbs. 9 oz. baby boy. History of Any Multi-Drug Resistant Organisms: None Reported Past Surgical History: Adenoidectomy Additional Past Surgical History / Comment(s): ear tubes placed x 2 Past Anesthesia/Blood Transfusion Reactions: No Reported Reaction Past Psychological History: Anxiety Smoking Status: Never smoker Past Alcohol Use History: None Reported Past Drug Use History: None Reported - Past Family History Father Family Medical History: No Reported History Sister(s) Family Medical History: Diabetes Mellitus Medications and Allergies Home Medications Medication Instructions Recorded Confirmed Type Vit No.180/Iron/Folic 1 tab PO DAILY 11/04/19 11/19/23 History [ Plus Tablet] Ibuprofen [Motrin] 600 mg PO Q6HR PRN #40 tab 11/20/23 Rx Allergies Allergy/AdvReac Type Severity Reaction Status Date / Time No Known Allergies Allergy Verified 11/19/23 09:26 Surgical - Exam Vital Signs Temp Pulse Resp BP Pulse Ox 98.3 F 91 20 119/78 99 11/23/23 13:19 11/23/23 13:19 11/23/23 13:19 11/23/23 13:19 11/23/23 13:19 Patient Seen Date: 11/23/23 Patient Seen Time: 17:30 - Respiratory normal respiratory effort - Cardiovascular Rhythm: regular - Abdomen Abdomen: soft, tender - Integumentary no rash - Psychiatric speech is normal Results - Labs 11/23/23 14:06 11/23/23 14:06 Abnormal Lab Results - Last 24 Hours (Table) 11/23/23 11/23/23 11/23/23 Range/Units 14:06 14:06 14:06 WBC 12.6 H (3.8-10.6) k/uL Neutrophils # 10.6 H (1.3-7.7) k/uL PT 9.5 L (10.0-12.5) sec Chloride 112 H (98-107) mmol/L Carbon Dioxide 21 L (22-30) mmol/L Creatinine 0.51 L (0.52-1.04) mg/dL AST 145 H (14-36) U/L ALT 129 H (4-34) U/L Alkaline Phosphatase 271 H (38-126) U/L Diabetes panel 11/23/23 Range/Units 14:06 Sodium 141 (137-145) mmol/L Potassium 4.1 (3.5-5.1) mmol/L Chloride 112 H (98-107) mmol/L Carbon Dioxide 21 L (22-30) mmol/L BUN 10 (7-17) mg/dL Creatinine 0.51 L (0.52-1.04) mg/dL Glucose 79 (74-99) mg/dL Calcium 9.0 (8.4-10.2) mg/dL AST 145 H (14-36) U/L ALT 129 H (4-34) U/L Alkaline Phosphatase 271 H (38-126) U/L Total Protein 6.7 (6.3-8.2) g/dL Albumin 3.7 (3.5-5.0) g/dL Calcium panel 11/23/23 Range/Units 14:06 Calcium 9.0 (8.4-10.2) mg/dL Albumin 3.7 (3.5-5.0) g/dL Pituitary panel 11/23/23 Range/Units 14:06 Sodium 141 (137-145) mmol/L Potassium 4.1 (3.5-5.1) mmol/L Chloride 112 H (98-107) mmol/L Carbon Dioxide 21 L (22-30) mmol/L BUN 10 (7-17) mg/dL Creatinine 0.51 L (0.52-1.04) mg/dL Glucose 79 (74-99) mg/dL Calcium 9.0 (8.4-10.2) mg/dL Adrenal panel 11/23/23 Range/Units 14:06 Sodium 141 (137-145) mmol/L Potassium 4.1 (3.5-5.1) mmol/L Chloride 112 H (98-107) mmol/L Carbon Dioxide 21 L (22-30) mmol/L BUN 10 (7-17) mg/dL Creatinine 0.51 L (0.52-1.04) mg/dL Glucose 79 (74-99) mg/dL Calcium 9.0 (8.4-10.2) mg/dL Total Bilirubin 0.9 (0.2-1.3) mg/dL AST 145 H (14-36) U/L ALT 129 H (4-34) U/L Alkaline Phosphatase 271 H (38-126) U/L Total Protein 6.7 (6.3-8.2) g/dL Albumin 3.7 (3.5-5.0) g/dL Assessment and Plan Assessment: Admit and plan would either be lap claire with cholangiogram then ERCP sphincterotomy if cholangio positive or preop MRCP, sphincterotomy if needed, then lap claire. In either case, admit, IV, antibiotics (1) Abnormal LFTs (liver function tests) Current Visit: Yes Status: Acute Code(s): R79.89 - OTHER SPECIFIED ABNORMAL FINDINGS OF BLOOD CHEMISTRY SNOMED Code(s): 823124018 (2) Acute cholecystitis Current Visit: Yes Status: Acute Code(s): K81.0 - ACUTE CHOLECYSTITIS SNOMED Code(s): 64281708 Time with Patient: Greater than 30
[2023-11-24] MEDS: PIPERACILLIN-TAZOBACTAM 3.375 GM in SODIUM CHLORIDE 0.9% 100 ML IVPB SCH (00:13)
[2023-11-24] MEDS: HYDROmorphone 0.5 MG/0.5 ML SYRINGE IVP PRN (03:03)
--- NOTE | 2023-11-24 11:36 | P.PN ---
Subjective Progress Note Date: 11/24/23 Principal diagnosis: Patient still has complaints of right upper quadrant pain. She states her pain is improved. On exam vital signs are stable. Abdomen soft. There is mild tenderness with quadrant. Acute cholecystitis with choledocholithiasis. Patient's liver enzymes will be repeated. If they are normalizing she will undergo laparoscopic cholecystectomy in a.m. If they remain elevated she may need ERCP. Objective - Vital Signs Vital signs: Vital Signs Temp 98.6 F 11/24/23 07:55 Pulse 71 11/24/23 07:55 Resp 17 11/24/23 07:55 BP 111/66 11/24/23 07:55 Pulse Ox 99 11/24/23 07:55 FiO2 Intake & Output 11/23/23 11/24/23 11/24/23 18:59 06:59 18:59 Weight 92.624 kg 92.624 kg Other: # Voids 4 - Labs CBC & Chem 7: 11/23/23 14:06 11/23/23 14:06 Labs: Abnormal Lab Results - Last 24 Hours (Table) 11/23/23 11/23/23 11/23/23 Range/Units 14:06 14:06 14:06 WBC 12.6 H (3.8-10.6) k/uL Neutrophils # 10.6 H (1.3-7.7) k/uL PT 9.5 L (10.0-12.5) sec Chloride 112 H (98-107) mmol/L Carbon Dioxide 21 L (22-30) mmol/L Creatinine 0.51 L (0.52-1.04) mg/dL AST 145 H (14-36) U/L ALT 129 H (4-34) U/L Alkaline Phosphatase 271 H (38-126) U/L Urine Protein (Negative) Urine Ketones (Negative) Urine Blood (Negative) Ur Leukocyte Esterase (Negative) Urine RBC (0-5) /hpf Urine WBC (0-5) /hpf Urine Mucus (None) /hpf 11/23/23 Range/Units 17:19 WBC (3.8-10.6) k/uL Neutrophils # (1.3-7.7) k/uL PT (10.0-12.5) sec Chloride (98-107) mmol/L Carbon Dioxide (22-30) mmol/L Creatinine (0.52-1.04) mg/dL AST (14-36) U/L ALT (4-34) U/L Alkaline Phosphatase (38-126) U/L Urine Protein Trace H (Negative) Urine Ketones 3+ H (Negative) Urine Blood Large H (Negative) Ur Leukocyte Esterase Moderate H (Negative) Urine RBC 150 H (0-5) /hpf Urine WBC 30 H (0-5) /hpf Urine Mucus Rare H (None) /hpf
[2023-11-24 12:58] LABS: ALT 159 U/L (4-34); AST 123 U/L (14-36); African American GFR (CKD) >90 (>60 ml/min/1.73 sqM); Albumin 3.4 g/dL (3.5-5.0); Albumin/Globulin Ratio 1.2; Alkaline Phosphatase 323 U/L (38-126); Anion Gap 15 mmol/L; Blood Urea Nitrogen 12 mg/dL (7-17); Calcium 8.6 mg/dL (8.4-10.2); Carbon Dioxide 11 mmol/L (22-30); Chloride 114 mmol/L (98-107); Globulin 2.8 g/dL; Glucose 82 mg/dL (74-99); Non-African American GFR(CKD) >90 (>60 ml/min/1.73 sqM); Potassium 4.2 mmol/L (3.5-5.1); Sodium 140 mmol/L (137-145); Total Bilirubin 0.7 mg/dL (0.2-1.3); Total Protein 6.2 g/dL (6.3-8.2)
[2023-11-24] MEDS: HEPARIN SODIUM,PORCINE 5,000 UNIT/ML 1 ML VIAL SQ SCH (14:08)
[2023-11-24] MEDS: PANTOPRAZOLE 40 MG/10 ML VIAL IVP SCH (14:11)
--- NOTE | 2023-11-25 01:01 | CONS ---
CONSULTATION REASON FOR CONSULTATION: Advice regarding anxiety, other multiple medical issues, requested by Dr. Ruiz. HISTORY OF PRESENT ILLNESS: This is a 28-year-old with a past medical history of anxiety, was admitted with abdominal pain and the gallbladder ultrasound showed evidence of cholelithiasis and possible cholecystitis. Surgery has seen the patient. The patient is 5 days. The liver enzymes are slightly elevated. Surgery is planning possible surgery. No chest pain. No palpitations. No fever. PAST MEDICAL HISTORY: History of recent delivery, anxiety. Rest of the history and rest of the chart is also reviewed. HOME MEDICATIONS: vitamins. ALLERGIES: None. FAMILY HISTORY: No history of heart disease or strokes in the family. SOCIAL HISTORY: No history of smoking or alcohol. REVIEW OF SYSTEMS: Fourteen-point review of systems negative except as mentioned earlier. PHYSICAL EXAM: VITAL SIGNS: Pulse 71, blood pressure 111/60, and respirations 17. CHEST: No rhonchi, no crackles. ABDOMEN: Soft, mild diffuse discomfort. No guarding. No rigidity. No mass palpable. LEGS: No edema. NERVOUS SYSTEM: Nonfocal. LABORATORY DATA: Reviewed 12.6 and CO2 is 11. LFTs are noted, elevated. ASSESSMENT: 1. Abdominal pain, possible cholelithiasis, cholecystitis. 2. Elevated LFTs. 3. Decreased CO2. 4. Elevated WBC. 5. Recent delivery, 5 days. 6. History of anxiety. RECOMMENDATIONS AND DISCUSSION: This is a 28-year-old woman, who presented with multiple complex medical issues, we will monitor the patient closely. I would recommend to continue current management and treatment, otherwise continue with broad-spectrum antibiotics, repeat labs, proton pump inhibitors, closely follow with Dr. Ruiz. DVT prophylaxis. Further recommendations to follow. MMODL / IJN: [id number] /
[2023-11-25 08:33] LABS: Basophils # (A) 0.02 X 10*3/uL (0.00-0.10); Basophils % (A) 0.2 %; Eosinophils % (A) 1.2 %; HCT 35.2 % (37.2-46.3); HGB 10.8 g/dL (12.0-15.0); Lymphocytes # (A) 1.49 X 10*3/uL (0.90-5.00); Lymphocytes % (A) 18.3 %; MCH 27.8 pg (27.0-32.0); MCHC 30.7 g/dL (32.0-37.0); MCV 90.7 FL (80.0-97.0); Mean Platelet Volume 9.7 FL (9.5-12.2); Monocytes # (A) 0.54 X 10*3/uL (0.20-1.00); Monocytes % (A) 6.6 %; NRBC Per 100 WBC 0 X 10*3/uL (0.00-0.01); Neutrophils # (A) 5.98 X 10*3/uL (1.80-7.70); Neutrophils % (A) 73.3 %; Platelet Count 267 X 10*3/uL (140-440); RBC 3.88 X 10*6/uL (4.10-5.20); RDW 13.4 % (11.5-14.5); WBC 8.16 X 10*3/uL (4.50-10.00)
[2023-11-25 09:11] LABS: ALT 125 U/L (8-44); AST 53 U/L (13-35); Albumin 3.5 g/dL (3.8-4.9); Albumin/Globulin Ratio 1.52 Ratio (1.60-3.17); Alkaline Phosphatase 322 U/L (41-126); Blood Urea Nitrogen 11.1 mg/dL (9.0-27.0); Carbon Dioxide 18.1 mmol/L (21.6-31.8); Chloride 107 mmol/L (96-109); Globulin 2.3 g/dL (1.6-3.3); Glucose 50 mg/dL (70-110); Potassium 4.5 mmol/L (3.5-5.5); Sodium 141 mmol/L (135-145); Total Bilirubin 0.5 mg/dL (0.3-1.2); Total Protein 5.8 g/dL (6.2-8.2)
[2023-11-25 13:21] LABS: Glucose,Whole Blood 47 mg/dL (70-110)
[2023-11-25] MEDS ORDERED: DEXTROSE 5% IN WATER 1,000 ML BAG ONE (14:00)
[2023-11-25 14:03] LABS: Glucose,Whole Blood 157 mg/dL (70-110)
[2023-11-25] MEDS: DEXAMETHASONE SOD PHOSPHATE 4 MG/ML 1 ML VIAL IVP ONE (14:13)
[2023-11-25] MEDS: ONDANSETRON 4 MG/2 ML VIAL IVP PRN (14:13)
[2023-11-25] MEDS: FAMOTIDINE 20 MG/2 ML VIAL IVP ONE (14:13)
[2023-11-25] MEDS: DEXTROSE 5% IN WATER 1,000 ML IV ONE (14:13)
[2023-11-25] MEDS: METOCLOPRAMIDE 5 MG/ML 2 ML VIAL IVP ONE (14:14)
--- NOTE | 2023-11-25 14:55 | P.PN ---
Subjective Progress Note Date: 11/25/23 CHIEF COMPLAINT: Cholecystitis HISTORY OF PRESENT ILLNESS: Patient with right upper quadrant abdominal pain. LFTs trending downwards. Patient is 5 days . Afebrile. WBC 12.6 down to 8.16 Hgb 10.8 platelets 267 PHYSICAL EXAM: VITAL SIGNS: Reviewed. GENERAL: Well-developed in no acute distress. ABDOMEN: Soft. Nondistended. Right upper quadrant tenderness NEUROLOGIC: Alert and oriented. Cranial nerves II through XII grossly intact. ASSESSMENT: 1. Acute cholecystitis with choledocholithiasis. LFTs trending down PLAN: -Patient scheduled for laparoscopic cholecystectomy today with Dr. Ruiz Physician Card Cutter Helper note has been reviewed by physician. Signing provider agrees with the documented findings, assessment, and plan of care. Objective - Vital Signs Vital signs: Vital Signs Temp 97.3 F L 11/25/23 13:26 Pulse 72 11/25/23 13:26 Resp 16 11/25/23 13:26 BP 126/64 11/25/23 13:26 Pulse Ox 98 11/25/23 13:26 FiO2 Intake & Output 11/24/23 11/25/23 11/25/23 18:59 06:59 18:59 Other: Voiding Method Toilet # Voids 2 2 - Labs CBC & Chem 7: 11/25/23 05:23 11/25/23 05:23 Labs: Abnormal Lab Results - Last 24 Hours (Table) 11/25/23 11/25/23 11/25/23 Range/Units 05:23 05:23 13:19 RBC 3.88 L (4.10-5.20) X 10*6/uL Hgb 10.8 L (12.0-15.0) g/dL Hct 35.2 L (37.2-46.3) % MCHC 30.7 L (32.0-37.0) g/dL Carbon Dioxide 18.1 L (21.6-31.8) mmol/L Anion Gap 15.90 H (4.00-12.00) mmol/L Glucose 50 L (70-110) mg/dL POC Glucose (mg/dL) 47 L (70-110) mg/dL AST 53 H (13-35) U/L ALT 125 H (8-44) U/L Alkaline Phosphatase 322 H (41-126) U/L Total Protein 5.8 L (6.2-8.2) g/dL Albumin 3.5 L (3.8-4.9) g/dL Albumin/Globulin Ratio 1.52 L (1.60-3.17) Ratio 11/25/23 Range/Units 14:01 RBC (4.10-5.20) X 10*6/uL Hgb (12.0-15.0) g/dL Hct (37.2-46.3) % MCHC (32.0-37.0) g/dL Carbon Dioxide (21.6-31.8) mmol/L Anion Gap (4.00-12.00) mmol/L Glucose (70-110) mg/dL POC Glucose (mg/dL) 157 H (70-110) mg/dL AST (13-35) U/L ALT (8-44) U/L Alkaline Phosphatase (41-126) U/L Total Protein (6.2-8.2) g/dL Albumin (3.8-4.9) g/dL Albumin/Globulin Ratio (1.60-3.17) Ratio Microbiology - Last 24 Hours (Table) 11/23/23 17:49 Blood Culture - Preliminary Blood 11/23/23 18:04 Blood Culture - Preliminary Blood
[2023-11-25] MEDS ORDERED: KETOROLAC 15 MG/ML 1 ML VIAL ONE (16:33)
[2023-11-25] MEDS ORDERED: HYDROmorphone (PF) 1 MG/ML ONE (16:33)
[2023-11-25] MEDS ORDERED: NEOSTIGMINE 1 MG/ML 10 ML VIAL ONE (16:33)
[2023-11-25] MEDS ORDERED: GLYCOPYRROLATE 0.2 MG/ML 2 ML VIAL ONE (16:33)
[2023-11-25] MEDS ORDERED: PROPOFOL 10 MG/ML 20 ML VIAL IV ONE (16:33)
[2023-11-25] MEDS ORDERED: LIDOCAINE 1% INJ 10MG/ML (20 ML MDV) ONE (16:33)
[2023-11-25] MEDS ORDERED: ROCURONIUM 10 MG/ML (5 ML VIAL) IV ONE (16:33)
[2023-11-25] MEDS ORDERED: SUCCINYLCHOLINE CHLORIDE 200 MG/10 ML VIAL IV ONE (16:33)
[2023-11-25] MEDS ORDERED: fentaNYL (PF) 50 MCG/ML 2 ML AMP ONE (16:33)
[2023-11-25] MEDS: LIDOCAINE 2%-EPI 1:100,000 20 ML VIAL SQ ONE (16:57)
[2023-11-25] MEDS: LACTATED RINGERS 1,000 ML IV ONE (17:17)
--- NOTE | 2023-11-25 17:47 | P.OP ---
Date of Procedure: 11/25/23 Preoperative Diagnosis: Cholecystitis Cholelithiasis Postoperative Diagnosis: Cholecystitis Cholelithiasis Anesthesia: PAUL Surgeon: Richard Ruiz Estimated Blood Loss (ml): 5 Pathology: other (Gallbladder) Condition: stable Disposition: PACU Description of Procedure: The patient was placed on the operating table. The patient received a general endotracheal tube anesthesia. The patients abdomen was prepped and draped in the usual sterile fashion. Through an infraumbilical stab incision, the fascia of the anterior abdominal wall was grasped with a pair of Kochers and then the Veress needle was placed in the peritoneal cavity. Position of the Veress needle was confirmed with positive drop test. The abdomen was then insufflated. After adequate insufflation, the 10 mm trocar was placed in the peritoneal cavity. Following this the laparoscope was placed in the peritoneal cavity. The patient was placed in the head-up, right side up position and then a 5 mm trocar was placed in the right lateral and right subcostal position under direct visualization. A 8 mm trocar was placed in the epigastric position. The gallbladder was grasped in the fundus and infundibulum. Traction on the gallbladder was placed in the lateral and the cephalad positions. The triangle of Calot was visualized.. The cystic duct was bluntly dissected until the union of the cystic duct and common bile duct was seen. A critical view of safety was achieved. The cystic duct was then divided and sealed with the Harmonic scissors. A PDS Endoloop was then placed throughout the cystic duct stump. The cystic artery divided and sealed with the Harmonic scissors. The gallbladder was then removed from the liver bed using Harmonic scissors. The gallbladder was then extracted through the epigastric port site. Operative field was checked for any bleeding spots and Harmonic scissors was used to coagulate the liver bed. The abdomen was irrigated. The trocars were removed. The skin was closed using interrupted 3-0 Vicryl suture. Dermabond dressing were applied. The patient tolerated the procedure well.
[2023-11-25] MEDS ORDERED: HYDROmorphone 1 MG/ML 1 ML SYRINGE IVP PRN (17:50)
[2023-11-25] MEDS: PIPERACILLIN-TAZOBACTAM 3.375 GM in SODIUM CHLORIDE 0.9% 100 ML IVPB SCH (20:24)
[2023-11-25] MEDS: ACETAMINOPHEN TAB 325 MG TAB PO PRN (21:37)
[2023-11-25] MEDS: KETOROLAC 15 MG/ML 1 ML VIAL IVP SCH (23:16)
--- NOTE | 2023-11-26 00:07 | PN ---
PROGRESS NOTE DATE OF SERVICE: 11/25/2023 SUBJECTIVE: This is a 28-year-old woman who was admitted with abdominal pain with possible cholelithiasis and cholecystitis, is scheduled for surgery. No chest pain, no palpitations, no fever. The LFTs are improving. Alkaline phosphatase is slightly elevated. OBJECTIVE: VITAL SIGNS: Pulse is 53, blood pressure 119/70, and respirations 16. CHEST: Clear to auscultation. CARDIOVASCULAR: S1, S2. ABDOMEN: Soft, tenderness in the epigastrium. LABORATORY DATA: Reviewed. ASSESSMENT: 1. Abdominal pain with possible cholelithiasis and cholecystitis. 2. Elevated LFTs. 3. Decreased CO2. 4. Elevated WBC. 5. Recent delivery, 5 days. 6. History of anxiety. RECOMMENDATIONS: Recommended to continue current management, continue symptomatic treatment. Follow closely with surgery. Repeat labs and DVT prophylaxis. Further recommendations to follow. See orders for details. Incentive spirometry. I would also recommend a chest x-ray in the morning also, rule out possibility of atelectasis. MMODL / IJN: [id number] /
[2023-11-26 06:52] LABS: Basophils % (A) 0 %; Eosinophils % (A) 0 %; HCT 39.1 % (34.0-46.0); HGB 12.5 gm/dL (11.4-16.0); Hypochromasia Slight; Lymphocytes # (A) 1.9 k/uL (1.0-4.8); Lymphocytes % (A) 22 %; MCH 28.6 pg (25.0-35.0); MCV 89.5 fL (80.0-100.0); Mean Platelet Volume 7.3; Monocytes # (A) 0.5 k/uL (0-1.0); Monocytes % (A) 5 %; Neutrophils # (A) 6.1 k/uL (1.3-7.7); Neutrophils % (A) 70 %; Platelet Count 345 k/uL (150-450); RBC 4.37 m/uL (3.80-5.40); RDW 13.7 % (11.5-15.5); WBC 8.7 k/uL (3.8-10.6)
[2023-11-26 07:00] LABS: ALT 287 U/L (4-34); AST 413 U/L (14-36); African American GFR (CKD) >90 (>60 ml/min/1.73 sqM); Albumin 3.8 g/dL (3.5-5.0); Anion Gap 13 mmol/L; Blood Urea Nitrogen 8 mg/dL (7-17); Calcium 9.3 mg/dL (8.4-10.2); Carbon Dioxide 17 mmol/L (22-30); Chloride 108 mmol/L (98-107); Glucose 66 mg/dL (74-99); Non-African American GFR(CKD) >90 (>60 ml/min/1.73 sqM); Potassium 4.3 mmol/L (3.5-5.1); Sodium 138 mmol/L (137-145); Total Bilirubin 1.9 mg/dL (0.2-1.3); Total Protein 6.8 g/dL (6.3-8.2)
[2023-11-26 07:17] LABS: Alkaline Phosphatase 609 U/L (38-126)
--- NOTE | 2023-11-26 09:06 | XR ---
EXAMINATION TYPE: XR chest 1V portable DATE OF EXAM: 11/26/2023 COMPARISON: None INDICATION: CHF TECHNIQUE: Single frontal view of the chest is obtained. FINDINGS: The heart size is normal. The pulmonary vasculature is normal. The lungs are clear. IMPRESSION: 1. No acute pulmonary process.
--- NOTE | 2023-11-26 11:30 | P.CONS ---
History of Present Illness - Reason for Consult Consult date: 11/26/23 Elevated LFTs, possible ERCP Requesting physician: Amalia Fuentes - Chief Complaint Abdominal pain, elevated LFTs - History of Present Illness This is a pleasant 28-year-old female who presented to the emergency department on Saturday with complaints of right upper quadrant pain. She had a spontaneous vaginal delivery on November 19, 2023. She reports that over the last month prior to her delivery she was having abdominal pain mostly in the right upper quadrant and mostly associated to eating. After her delivery she reports her pain was increasing. She was admitted and seen by general surgery who recommended admission with IV antibiotics and underwent cholecystectomy yesterday. On admission total bilirubin was normal, AST 145 ALT 129 alkaline phosphatase 271. Labs remained stable until today where was noted that total bilirubin increased to 1.9 from 0.5 yesterday AST 413 from 53 yesterday ALT 287 from 125 and alkaline phosphatase 609 from 322. Today she states that she feels like she always has a gas pain that is in the right upper quadrant radiating to her right shoulder. Denies any nausea or vomiting. She tolerated her breakfast this morning. Gallbladder ultrasound from 11/23/2023 reports gallstones are present. Equivocal secondary findings for acute cholecystitis noted including positive sonographic Gonzalez sign. HIDA scan follow-up should be considered. Patient also had CBD dilation of 0.7 cm Review of Systems REVIEW OF SYSTEMS: CARDIOPULMONARY: No chest pain or shortness of breath. Gastrointestinal: Right upper quadrant pain, radiates to right shoulder blade. No nausea or vomiting. No hematemesis, coffee-ground emesis. No rectal bleeding, or melena. GENITOURINARY: No dysuria or hematuria. MUSCULOSKELETAL: Reports normal range of motion. SKIN: No rashes. No jaundice. ENDOCRINE: No chills, fevers. No excessive weight gain or loss. No polydipsia or polyuria. PSYCHIATRIC: Unremarkable. NEUROLOGY: No change in mental status. Denies dizziness, headache. ENT: Vision unremarkable. CONSTITUTIONAL: No recent weight loss. No fever, chills, night sweats. Past Medical History Past Medical History: No Reported History Additional Past Medical History / Comment(s): Previous term vaginal delivery 8 lbs. 9 oz. baby boy. History of Any Multi-Drug Resistant Organisms: None Reported Past Surgical History: Adenoidectomy Additional Past Surgical History / Comment(s): ear tubes placed x 2 Past Anesthesia/Blood Transfusion Reactions: No Reported Reaction Past Psychological History: Anxiety Smoking Status: Never smoker Past Alcohol Use History: None Reported Past Drug Use History: None Reported - Past Family History Father Family Medical History: No Reported History Sister(s) Family Medical History: Diabetes Mellitus Medications and Allergies Home Medications Medication Instructions Recorded Confirmed Type Vit No.180/Iron/Folic 1 tab PO DAILY 11/04/19 11/23/23 History [ Plus Tablet] Ibuprofen [Motrin] 600 mg PO Q6HR PRN #40 tab 11/20/23 11/23/23 Rx Allergies Allergy/AdvReac Type Severity Reaction Status Date / Time No Known Allergies Allergy Verified 11/23/23 18:09 Physical Exam Vitals: Vital Signs Temp Pulse Resp BP Pulse Ox 11/26/23 07:51 98 F 69 16 122/74 11/25/23 23:26 98.0 F 53 L 16 121/74 97 11/25/23 20:15 58 L 16 105/67 98 11/25/23 19:45 98.4 F 57 L 14 107/66 95 11/25/23 19:15 98.6 F 56 L 15 107/70 95 11/25/23 19:00 69 16 106/69 95 11/25/23 18:36 65 16 115/72 95 11/25/23 18:20 98.1 F 70 16 117/72 96 11/25/23 17:49 57 L 19 119/59 96 11/25/23 17:34 55 L 18 124/65 97 11/25/23 17:19 97.6 F 72 15 137/75 100 11/25/23 13:26 97.3 F L 72 16 126/64 98 11/25/23 13:15 98.0 F 70 20 119/75 100 Intake and Output 11/25/23 11/26/23 11/26/23 22:59 06:59 14:59 Intake Total 830 Output Total 5 400 Balance 825 -400 Intake: IV 350 Oral 480 Output: Urine 400 Estimated Blood Loss 5 Other: Voiding Method Toilet # Voids 3 1 1 General appearance: The patient is alert, oriented, appears in no acute distress. HET: Head is normocephalic and atraumatic. Conjunctiva pink. Sclera anicteric. Neck: Supple without lymphadenopathy. Trachea midline. Heart: Regular. Lungs: Equal expansion, normal respiratory effort. Abdomen: Soft,RUQ tenderness, nondistended. Surgical incision sites well- approximated. Skin: No rashes. No jaundice. Extremities: Normal skin color and turgor. No pedal edema. Neurological: No focal deficits. Alert and oriented x3. Results CBC & Chem 7: 11/26/23 06:14 11/26/23 06:14 Labs: Abnormal Lab Results - Last 24 Hours (Table) 11/25/23 11/25/23 11/26/23 Range/Units 13:19 14:01 06:14 Chloride 108 H (98-107) mmol/L Carbon Dioxide 17 L (22-30) mmol/L Glucose 66 L (74-99) mg/dL POC Glucose (mg/dL) 47 L 157 H (70-110) mg/dL Total Bilirubin 1.9 H (0.2-1.3) mg/dL AST 413 H (14-36) U/L ALT 287 H (4-34) U/L Alkaline Phosphatase 609 H (38-126) U/L Microbiology - Last 24 Hours (Table) 11/23/23 17:49 Blood Culture - Preliminary Blood 11/23/23 18:04 Blood Culture - Preliminary Blood Assessment and Plan (1) Abnormal LFTs (liver function tests) Narrative/Plan: 8-year-old female who recently had spontaneous vaginal delivery 1 week ago presented with right upper quadrant pain worsened by eating. She was noted to have cholelithiasis and acute cholecystitis and underwent Romina cystectomy yesterday. She had a increase in her LFTs today concerning for possible choledocholithiasis. Gastroenterology consulted for possible ERCP. Patient without any significant pain. Repeat labs for in the morning. Keep n.p.o. and possible ERCP tomorrow. Continue IV antibiotics. Current Visit: Yes Status: Acute Code(s): R79.89 - OTHER SPECIFIED ABNORMAL FINDINGS OF BLOOD CHEMISTRY SNOMED Code(s): 870411560 (2) Cholelithiasis Current Visit: Yes Status: Acute Code(s): K80.20 - CALCULUS OF GALLBLADDER W/O CHOLECYSTITIS W/O OBSTRUCTION SNOMED Code(s): 300402452 (3) Acute cholecystitis Current Visit: Yes Status: Acute Code(s): K81.0 - ACUTE CHOLECYSTITIS SNOMED Code(s): 75372608 Plan: 1. Continue symptomatic and supportive care 2. Patient may have clear liquid diet, n.p.o. after midnight 3. Hold heparin tomorrow morning 4. Repeat CBC, CMP, INR tomorrow morning 5. Pain medication as needed 6. Continue IV Zosyn as ordered 7. Indomethacin as ordered, administer 1 hour prior to procedure 8. Will schedule patient for ERCP tomorrow. Procedure discussed with patient and including risks and benefits. Patient verbalized understanding. Thank you for this consultation, we will continue to follow. Dr. Marie Seaman I agree with the dictator's note, documented as a scribe by Dionne Estrada.
--- NOTE | 2023-11-26 11:58 | P.PN ---
Subjective Progress Note Date: 11/26/23 CHIEF COMPLAINT: Cholecystitis HISTORY OF PRESENT ILLNESS: Patient postop day #1 status post laparoscopic cholecystectomy. Patient's LFTs and bilirubin have trended upwards. She did have increased epigastric abdominal pain earlier that did move up into the shoulder. It is now improved. Patient denies any nausea or vomiting. Afebrile. WBC is 8.7 Hgb 12.5 total bili up at 1.9 AST 413 ALT 287 alk phos 609 PHYSICAL EXAM: VITAL SIGNS: Reviewed. GENERAL: Well-developed in no acute distress. ABDOMEN: Soft. Nondistended. Right upper quadrant tenderness NEUROLOGIC: Alert and oriented. Cranial nerves II through XII grossly intact. ASSESSMENT: 1. Acute cholecystitis status post laparoscopic cholecystectomy 2. Possible choledocholithiasis 3. PLAN: -LFTs trending upwards. Consult GI service. They have ordered an MRCP. -Continue antibiotics -Continue supportive care Physician Rn [employer]formatics note has been reviewed by physician. Signing provider agrees with the documented findings, assessment, and plan of care. Objective - Vital Signs Vital signs: Vital Signs Temp 98 F 11/26/23 07:51 Pulse 69 11/26/23 07:51 Resp 16 11/26/23 07:51 BP 122/74 11/26/23 07:51 Pulse Ox 97 11/25/23 23:26 FiO2 Intake & Output 11/25/23 11/26/23 11/26/23 18:59 06:59 18:59 Intake Total 1050 480 Output Total 5 400 Balance 1045 80 Intake: IV 1050 Oral 480 Output: Urine 400 Estimated Blood Loss 5 Other: Voiding Method Toilet Toilet # Voids 3 1 1 - Labs CBC & Chem 7: 11/26/23 06:14 11/26/23 06:14 Labs: Abnormal Lab Results - Last 24 Hours (Table) 11/25/23 11/25/23 11/26/23 Range/Units 13:19 14:01 06:14 Chloride 108 H (98-107) mmol/L Carbon Dioxide 17 L (22-30) mmol/L Glucose 66 L (74-99) mg/dL POC Glucose (mg/dL) 47 L 157 H (70-110) mg/dL Total Bilirubin 1.9 H (0.2-1.3) mg/dL AST 413 H (14-36) U/L ALT 287 H (4-34) U/L Alkaline Phosphatase 609 H (38-126) U/L Microbiology - Last 24 Hours (Table) 11/23/23 17:49 Blood Culture - Preliminary Blood 11/23/23 18:04 Blood Culture - Preliminary Blood
[2023-11-26] MEDS ORDERED: LORazepam 2 MG/ML INJ IV PRN (13:12)
--- NOTE | 2023-11-26 21:58 | PN ---
PROGRESS NOTE DATE OF SERVICE: 11/26/2023 SUBJECTIVE: This 28-year-old woman was admitted with abdominal pain and laparoscopic cholecystectomy, had elevated liver enzymes and GI is evaluating the patient for possible ERCP. Chest x-ray is unremarkable. OBJECTIVE: VITAL SIGNS: Pulse is 53, blood pressure 120/70, respirations 16. CHEST: Clear to auscultation. CARDIOVASCULAR: S1, S2. ABDOMEN: Soft, minimal discomfort in the epigastrium. LABORATORY DATA: Noted. ASSESSMENT: 1. Abdominal pain with possible cholelithiasis and cholecystitis, status post laparoscopic cholecystectomy. 2. Elevated LFTs, decrease CO2. 3. Elevated WBC. 4. Recent delivery, 5 days. RECOMMENDATIONS: Recommended to continue current management, continue symptomatic treatment. Repeat labs in the morning. Closely follow with surgery. DVT prophylaxis. Gastroenterology consultation and possible ERCP. Further recommendations to follow. THOMAS / REBELN: [id number] /
[2023-11-27] MEDS: DEXTROSE 5%-0.9% NACL 1,000 ML IV SCH (03:17)
[2023-11-27 06:30] LABS: Basophils % (A) 1 %; Eosinophils # (A) 0.2 k/uL (0-0.7); Eosinophils % (A) 2 %; HGB 11.6 gm/dL (11.4-16.0); Hypochromasia Slight; Lymphocytes % (A) 29 %; MCH 28.1 pg (25.0-35.0); MCHC 31.5 g/dL (31.0-37.0); MCV 89.2 fL (80.0-100.0); Mean Platelet Volume 7.4; Monocytes # (A) 0.3 k/uL (0-1.0); Monocytes % (A) 4 %; Neutrophils # (A) 4.4 k/uL (1.3-7.7); Neutrophils % (A) 63 %; Platelet Count 284 k/uL (150-450); RBC 4.14 m/uL (3.80-5.40); RDW 13.8 % (11.5-15.5)
[2023-11-27 06:36] LABS: ALT 241 U/L (4-34); AST 93 U/L (14-36); African American GFR (CKD) >90 (>60 ml/min/1.73 sqM); Albumin 2.9 g/dL (3.5-5.0); Alkaline Phosphatase 447 U/L (38-126); Anion Gap 11 mmol/L; Blood Urea Nitrogen 14 mg/dL (7-17); Calcium 8.8 mg/dL (8.4-10.2); Carbon Dioxide 17 mmol/L (22-30); Chloride 114 mmol/L (98-107); Glucose 61 mg/dL (74-99); Non-African American GFR(CKD) >90 (>60 ml/min/1.73 sqM); Sodium 142 mmol/L (137-145); Total Bilirubin 0.7 mg/dL (0.2-1.3); Total Protein 5.5 g/dL (6.3-8.2)
[2023-11-27 06:49] LABS: Prothrombin Time 10.9 sec (10.0-12.5)
[2023-11-27] MEDS: INDOMETHACIN 100 MG SUPPOSITORY RECTAL ONE (10:37)
[2023-11-27] MEDS: LACTATED RINGERS 1,000 ML IV ONE (10:55)
[2023-11-27] MEDS: ONDANSETRON 4 MG/2 ML VIAL IVP ONE (10:55)
[2023-11-27] MEDS ORDERED: PROPOFOL 10 MG/ML 20 ML VIAL IV ONE (11:14)
[2023-11-27] MEDS ORDERED: fentaNYL (PF) 50 MCG/ML 2 ML AMP ONE (11:14)
[2023-11-27] MEDS ORDERED: ePHEDrine 50 MG/ML 1 ML VIAL ONE (11:14)
[2023-11-27] MEDS ORDERED: LIDOCAINE 1% INJ 10MG/ML (20 ML MDV) ONE (11:14)
[2023-11-27] MEDS ORDERED: SUCCINYLCHOLINE CHLORIDE 200 MG/10 ML VIAL IV ONE (11:14)
[2023-11-27] MEDS ORDERED: MIDAZOLAM 2 MG/2 ML VIAL ONE (11:14)
[2023-11-27] MEDS: IOPAMIDOL-300 50ML BTL MISCELLANE ONE (11:37)
--- NOTE | 2023-11-27 11:58 | P.PCN ---
Date of Procedure: 11/27/23 Procedure(s) Performed: Brief history: Patient is a 28 year-old pleasant lady scheduled for an ERCP as part of evaluation of abdominal pain and elevated serum transaminases for the last 2 days' duration. She presented with severe right upper quadrant abdominal pain one week and was admitted to the hospital. Ultrasound noted to have gallstones. She underwent gallbladder surgery by Dr. Joseph elliott 2 days ago. One day after the surgery she was noted to have elevated LFTs and bilirubin up to 1.9 and because of clinical suspicion for CBD stones he scheduled for ERCP today. Procedure performed: ERCP with biliary sphincterotomy and balloon sweep Preoperative diagnoses: Elevated LFTs and jaundice/abdominal pain status post gallbladder surgery 2 days ago. IV sedation per anesthesia: Procedure: After informed consent was obtained from the patient and after the risks benefits and complications including bleeding perforation and pancreatitis explained in detail the patient was brought into the endoscopy unit. The patient was placed in prone position and IV conscious sedation was administered by anesthesia under continuous monitoring. The Olympus side-viewing duodenoscope was then inserted into the mouth and esophagus intubated without any difficulty. The scope was gradually advanced into the stomach and duodenum. The major papilla was identified without any difficulty. Initial cannulation resulted in presentation of the pancreatic duct that appeared normal. Subsequent cannulation resulted in presentation the common bile duct that appeared slightly dilated measuring 8 mm in diameter. There was a faint filling defect noted in the distal common bile duct. At this time the catheter was exchanged over a guidewire and a biliary sphincterotome was passed into the common bile duct and a bili recent enterotomy was performed in 11 o'clock position and was extended to 1 cm. Finding this an 8.5 mm Balloon was passed over the guidewire into the proximal CBD, gently nflated and gradually withdrawn and I did not see any stones exiting the ampulla. This maneuver was repeated 2 more times. Occlusion cholangiogram was performed and no otherFILLING defects were noted and the patient tolerated the procedure well. Impression Normal appearing pancreatic duct Slightly dilated common bile duct with a faint filling defect in the distal CBD status post biliary sphincterotomy and balloon sweep but no stones seen exiting the ampulla Recommendations: The findings of this examination were discussed with the patient. She'll be started on clear liquids today. Monitor LFTs closely. If labs improving she can be discharged home tomorrow. .
[2023-11-27] MEDS ORDERED: INDOMETHACIN 100 MG SUPPOSITORY RECTAL ONE (12:00)
[2023-11-27 12:14] LABS: Glucose,Whole Blood 63 mg/dL (70-110)
--- NOTE | 2023-11-27 12:53 | FL ---
EXAMINATION TYPE: FL ERCP Intraoperative/procedural fluoroscopic services were provided. Total fluoro scopy time is 1 minute 4 seconds with a total of 4 submitted images to PACS. Please see the operative /procedural note for further details. DAP: 4.2523 Gycm2
--- NOTE | 2023-11-27 13:31 | PN ---
PROGRESS NOTE DATE OF SERVICE: 11/27/2023 SUBJECTIVE: This 28-year-old woman was admitted with acute cholelithiasis, also had elevated LFTs. Patient underwent ERCP as well as sphincterotomy and balloon sweep today. No chest pain, no palpitations, no fever. OBJECTIVE: VITAL SIGNS: Pulse is 77, blood pressure 140/80, respirations 16. CHEST: Clear to auscultation. S1, S2. ABDOMEN: Soft, mild discomfort. LABORATORY DATA: Reviewed. ASSESSMENT: 1. Abdominal pain with possible cholelithiasis and cholecystitis, status post laparoscopic cholecystectomy. 2. CBD stone, status post sphincterotomy and balloon sweep. 3. Elevated LFTs, decreased CO2. 4. Elevated WBC. 5. Recent delivery 5 days. RECOMMENDATIONS: Recommended to continue current medications, continue symptomatic treatment, otherwise closely follow with surgery, Gastroenterology. Repeat labs and the patient is on empiric antibiotics. Further recommendations to follow. MMODL / IJN: [id number] /
[2023-11-27] MEDS ORDERED: HYDROcodone/APAP 5-325MG 1 EACH TAB PO PRN (15:24)
--- NOTE | 2023-11-27 15:26 | P.PN ---
Subjective Progress Note Date: 11/27/23 CHIEF COMPLAINT: Cholecystitis HISTORY OF PRESENT ILLNESS: Patient postop day #2 status post laparoscopic cholecystectomy. Patient had ERCP completed today with GI service. Revealed slightly dilated CBD with faint filling defect. No stones reported. Patient reports her pain is improved. She is complaining of some bleeding at the umbilicus incision site. Afebrile. Hemoglobin stable at 11.6 LFTs trending down. This nurses have had to change the dressing 2 times this morning due to bleeding at the umbilicus incision site PHYSICAL EXAM: VITAL SIGNS: Reviewed. GENERAL: Well-developed in no acute distress. ABDOMEN: Soft. Nondistended. Small amount of bleeding with blood clot at the umbilicus incision site. NEUROLOGIC: Alert and oriented. Cranial nerves II through XII grossly intact. ASSESSMENT: 1. Acute cholecystitis status post laparoscopic cholecystectomy 2. Possible choledocholithiasis 3. PLAN: -Continue dressing over the umbilicus incision site -Discontinue Toradol due to incisional bleeding. -Subcu heparin discontinued due to incisional bleeding -SCDs added for DVT prophylaxis -Continue antibiotics -Continue supportive care -Continue clear liquids Physician Supervisor [employer] note has been reviewed by physician. Signing provider agrees with the documented findings, assessment, and plan of care. Objective - Vital Signs Vital signs: Vital Signs Temp 98.9 F 11/27/23 11:47 Pulse 50 L 11/27/23 12:15 Resp 16 11/27/23 12:15 BP 141/79 11/27/23 12:15 Pulse Ox 99 11/27/23 12:15 FiO2 Intake & Output 11/26/23 11/27/23 11/27/23 18:59 06:59 18:59 Intake Total 700 Balance 700 Intake: IV 700 Other: # Voids 1 1 - Labs CBC & Chem 7: 11/27/23 05:46 11/27/23 05:46 Labs: Abnormal Lab Results - Last 24 Hours (Table) 11/27/23 11/27/23 Range/Units 05:46 12:05 Chloride 114 H (98-107) mmol/L Carbon Dioxide 17 L (22-30) mmol/L Glucose 61 L (74-99) mg/dL POC Glucose (mg/dL) 63 L (70-110) mg/dL AST 93 H (14-36) U/L ALT 241 H (4-34) U/L Alkaline Phosphatase 447 H (38-126) U/L Total Protein 5.5 L (6.3-8.2) g/dL Albumin 2.9 L (3.5-5.0) g/dL Microbiology - Last 24 Hours (Table) 11/23/23 17:49 Blood Culture - Preliminary Blood 11/23/23 18:04 Blood Culture - Preliminary Blood
[2023-11-27] MEDS: LACTATED RINGERS 1,000 ML IV SCH (19:59)
[2023-11-27 20:28] VITALS: RESP 16
[2023-11-28 07:19] LABS: Basophils % (A) 0 %; Eosinophils # (A) 0.2 k/uL (0-0.7); Eosinophils % (A) 4 %; HCT 34.1 % (34.0-46.0); HGB 10.9 gm/dL (11.4-16.0); Hypochromasia Slight; Lymphocytes # (A) 1.7 k/uL (1.0-4.8); Lymphocytes % (A) 28 %; MCH 28.2 pg (25.0-35.0); MCV 88.2 fL (80.0-100.0); Mean Platelet Volume 7.7; Monocytes # (A) 0.3 k/uL (0-1.0); Monocytes % (A) 5 %; Neutrophils # (A) 3.8 k/uL (1.3-7.7); Neutrophils % (A) 61 %; Platelet Count 225 k/uL (150-450); RBC 3.86 m/uL (3.80-5.40); WBC 6.3 k/uL (3.8-10.6)
[2023-11-28 07:36] LABS: ALT 158 U/L (4-34); AST 24 U/L (14-36); African American GFR (CKD) >90 (>60 ml/min/1.73 sqM); Albumin 2.8 g/dL (3.5-5.0); Alkaline Phosphatase 356 U/L (38-126); Anion Gap 9 mmol/L; Blood Urea Nitrogen 10 mg/dL (7-17); Calcium 8.5 mg/dL (8.4-10.2); Carbon Dioxide 20 mmol/L (22-30); Chloride 113 mmol/L (98-107); Glucose 77 mg/dL (74-99); Non-African American GFR(CKD) >90 (>60 ml/min/1.73 sqM); Potassium 3.7 mmol/L (3.5-5.1); Sodium 142 mmol/L (137-145); Total Bilirubin 0.5 mg/dL (0.2-1.3); Total Protein 5.2 g/dL (6.3-8.2)
[2023-11-28 08:50] VITALS: BP 128/76; PULSE 55; TEMP 98.1
--- NOTE | 2023-11-28 11:22 | P.PN ---
Subjective Progress Note Date: 11/28/23 Principal diagnosis: Choledocholithiasis This is a pleasant 28-year-old female who presented to the emergency department on Saturday with complaints of right upper quadrant pain. She had a spontaneous vaginal delivery on November 19, 2023. She reports that over the last month p rior to her delivery she was having abdominal pain mostly in the right upper quadrant and mostly associated to eating. After her delivery she reports her pain was increasing. She was admitted and seen by general surgery who recommended admission with IV antibiotics and underwent cholecystectomy ye sterday. On admission total bilirubin was normal, AST 145 ALT 129 alkaline phosphatase 271. Labs remained stable until today where was noted that total bilirubin increased to 1.9 from 0.5 yesterday AST 413 from 53 yesterday ALT 287 from 125 and alkaline phosphatase 609 from 322. Today she states that she feels like she always has a gas pain that is in the right upper quadrant radiating to her right shoulder. Denies any nausea or vomiting. She tolerated her breakfast this morning. Gallbladder ultrasound from 11/23/2023 reports gallstones are present. Equivocal secondary findings for acute cholecystitis noted including positive sonographic Gonzalez sign. HIDA scan follow-up should be considered. Patient also had CBD dilation of 0.7 cm 11/28/2023 Patient seen and examined today as a follow-up. She is up and walking around. She is status postcholecystectomy. She is status post ERCP yesterday with findings of a normal-appearing pancreatic duct, slightly dilated common bile duct with a faint filling defect in the distal CBD status post biliary sphincterectomy and balloon sweep but no stone seen exiting the ampulla. LFTs are trending down. She denies any abdominal pain other than some mild surgical discomfort. She has had a bowel movement and tolerating her diet. Objective - Vital Signs Vital signs: Vital Signs Temp 98.1 F 11/28/23 08:00 Pulse 55 L 11/28/23 08:00 Resp 16 11/28/23 08:00 BP 128/76 11/28/23 08:00 Pulse Ox 97 11/28/23 08:00 FiO2 Intake & Output 11/27/23 11/28/23 11/28/23 18:59 06:59 18:59 Intake Total 700 560 Balance 700 560 Intake: IV 700 Intake, IV Titration 200 Amount Dextrose 5%-0.9% NaCl 1, 100 000 ml @ 75 mls/hr IV . [id number] [facility] Rx#:[id number] Piperacillin-Tazobactam 3 100 .375 gm In Sodium Chloride 0.9% 100 ml @ 25 mls/hr IVPB Q8H [facility] Rx#: [id number] Oral 360 Other: # Voids 1 # Bowel Movements 1 - Exam General appearance: The patient is alert, oriented, appears in no acute distress. HET: Head is normocephalic and atraumatic. Conjunctiva pink. Sclera anicteric. Neck: Supple without lymphadenopathy. Abdomen: Soft, nontender, nondistended. No guarding or rigidity. Extremities: Normal skin color and turgor. No pedal edema Skin: No rashes, no jaundice Neurological: No focal deficits. Alert and oriented. - Labs CBC & Chem 7: 11/28/23 06:47 11/28/23 06:47 Labs: Abnormal Lab Results - Last 24 Hours (Table) 11/27/23 11/28/23 11/28/23 Range/Units 12:05 06:47 06:47 Hgb 10.9 L (11.4-16.0) gm/dL Chloride 113 H (98-107) mmol/L Carbon Dioxide 20 L (22-30) mmol/L POC Glucose (mg/dL) 63 L (70-110) mg/dL ALT 158 H (4-34) U/L Alkaline Phosphatase 356 H (38-126) U/L Total Protein 5.2 L (6.3-8.2) g/dL Albumin 2.8 L (3.5-5.0) g/dL Assessment and Plan (1) Abnormal LFTs (liver function tests) Narrative/Plan: 28-year-old female who recently had spontaneous vaginal delivery 1 week ago presented with right upper quadrant pain worsened by eating. She was noted to have cholelithiasis and acute cholecystitis and underwent Romina cystectomy yesterday. She had a increase in her LFTs today concerning for possible choledocholithiasis. Gastroenterology consulted for possible ERCP. Patient without any significant pain. Repeat labs for in the morning. Keep n.p.o. and possible ERCP tomorrow. Continue IV antibiotics. 11/28/2023. Patient status post ERCP with a faint filling defect in the distal CBD status post biliary sphincterectomy and balloon sweep however no stone seen exiting the ampulla. Patient likely passed stone. LFTs are trending down, pain is improved. Will clear for discharge. Current Visit: Yes Status: Acute Code(s): R79.89 - OTHER SPECIFIED ABNORMAL FINDINGS OF BLOOD CHEMISTRY SNOMED Code(s): 503622241 (2) Cholelithiasis Current Visit: Yes Status: Acute Code(s): K80.20 - CALCULUS OF GALLBLADDER W/O CHOLECYSTITIS W/O OBSTRUCTION SNOMED Code(s): 652302362 (3) Acute cholecystitis Current Visit: Yes Status: Acute Code(s): K81.0 - ACUTE CHOLECYSTITIS SNOMED Code(s): 08852464 Plan: 1. Continue symptomatic and supportive care 2. Advance to regular diet 3. Patient is status post ERCP with biliary sphincterectomy and balloon sweep with no stones exiting ampulla. Patient likely passed stone. 4. Patient is cleared from gastroenterology for discharge Thank you for this consultation, we will sign off at this time. Dr. Marie Seaman I agree with the dictator's note, documented as a scribe by Dionne Estrada.
[2023-11-28 11:31] LABS: HCT 40.2 % (34.0-46.0); HGB 12.5 gm/dL (11.4-16.0); Hypochromasia Slight; MCH 28.1 pg (25.0-35.0); MCHC 31.2 g/dL (31.0-37.0); Mean Platelet Volume 7.3; Platelet Count 298 k/uL (150-450); RBC 4.47 m/uL (3.80-5.40); RDW 13.9 % (11.5-15.5)
[2023-11-28 11:45] LABS: ALT 164 U/L (4-34); AST 28 U/L (14-36); African American GFR (CKD) >90 (>60 ml/min/1.73 sqM); Albumin 3.5 g/dL (3.5-5.0); Alkaline Phosphatase 400 U/L (38-126); Anion Gap 6 mmol/L; Blood Urea Nitrogen 10 mg/dL (7-17); Calcium 9.4 mg/dL (8.4-10.2); Carbon Dioxide 24 mmol/L (22-30); Chloride 111 mmol/L (98-107); Glucose 68 mg/dL (74-99); Non-African American GFR(CKD) >90 (>60 ml/min/1.73 sqM); Potassium 3.7 mmol/L (3.5-5.1); Sodium 141 mmol/L (137-145); Total Bilirubin 0.6 mg/dL (0.2-1.3); Total Protein 6.4 g/dL (6.3-8.2)
--- NOTE | 2023-11-28 13:01 | P.PN ---
Subjective Progress Note Date: 11/28/23 This is a very pleasant 28-year-old female who was recently hospitalized on the mom and baby unit and is 6 days from a vaginal delivery developed worsening pain in the right upper quadrant underwent imaging with concerns of cholelithiasis with Kalita cholelithiasis. Patient is status post laparoscopic cholecystectomy with general surgery. Patient also being followed by GI as patient had a spike in liver functions including total bili with concerns of possible retained stone. Patient underwent ERCP with no stone present and functions are trending down. Patient has been cleared by GI for outpatient follow-up. Patient continued on regular diet and tolerating and has been encouraged to slowly advance as tolerated. Patient to continue using incentive spirometer at least 10 times every hour while awake. Patient remains afebrile and was continued on antibiotics in the form of Zosyn. Patient is medically stable for discharge and recommend outpatient follow-up in the next week. Review of systems: Constitutional: No reports of fatigue, fever, or chills Cardiovascular: No reports of chest pain or palpitations Respiratory: No reports of shortness of breath or cough GI: No reports of nausea, no reports of vomiting, no diarrhea : No reports of dysuria or retention Neurovascular: No reports of generalized weakness All medications have been reviewed PHYSICAL EXAMINATION: GENERAL: The patient is alert and oriented x4, Well developed, well nourished. Obese HEENT: Pupils are round and equally reacting to light. EOMI. no scleral icterus. No conjunctival pallor. Normocephalic, atraumatic. No pharyngeal erythema. No thyromegaly. CARDIOVASCULAR: S1 and S2 muffled PULMONARY: diminished breath sounds bilaterally with no wheezing or rhonchi noted. ABDOMEN: soft. Mildly tender on exam. obese. non-distended, normoactive bowel sounds. No palpable organomegaly. Surgical sites are dry and intact, no further bleeding noted of the umbilical surgical site MUSCULOSKELETAL: No joint swelling or deformity. EXTREMITIES: No cyanosis, clubbing, or pedal edema. NEUROLOGICAL: Gross neurological examination did not reveal any focal deficits. Diffuse weakness SKIN: No rashes. Assessment: Abdominal pain with cholelithiasis and cholecystitis, status post laparoscopic cholecystectomy CBD stone, status post ERCP Recently vaginal delivery 5 days prior Obesity with a BMI of 34.0 History of anxiety GI prophylaxis DVT prophylaxis Full code Plan: Recommend to continue with current medications and management per general surgery as admitting. Patient is status post laparoscopic cholecystectomy and doing well. GI also following and LFTs trending down, total bili has normalized and patient is status post ERCP although must of passed the stone and has been cleared by GI for discharge Encouraged incentive spirometer use at least 10 times every hour while awake Encouraged fluids and rest as patient is also 6 days Continue on current diet and slowly advance as tolerated and recommend outpatient follow-up with primary care provider as well as general surgery Patient is medically stable for discharge once cleared by surgery. Thank you kindly for this consultation. We will continue to follow during hospitalization. The impression and plan of care has been dictated by Teresa Lagos, nurse practitioner as directed. Dr. Francisco MD I have performed a history and examination and MDM of this patient, discussed the same with the dictator, and agree with the dictator's assessment and plan as written ,documented as a scribe. Based on total visit time, I have performed more than 50% of the visit. Any additional findings or plans will be noted. Objective - Vital Signs Vital signs: Vital Signs Temp 98.1 F 11/28/23 08:00 Pulse 55 L 11/28/23 08:00 Resp 16 11/28/23 08:00 BP 128/76 11/28/23 08:00 Pulse Ox 97 11/28/23 08:00 FiO2 Intake & Output 11/27/23 11/28/23 11/28/23 18:59 06:59 18:59 Intake Total 700 560 Balance 700 560 Intake: IV 700 Intake, IV Titration 200 Amount Dextrose 5%-0.9% NaCl 1, 100 000 ml @ 75 mls/hr IV . [id number] [facility] Rx#:[id number] Piperacillin-Tazobactam 3 100 .375 gm In Sodium Chloride 0.9% 100 ml @ 25 mls/hr IVPB Q8H [facility] Rx#: [id number] Oral 360 Other: # Voids 1 # Bowel Movements 1 - Labs CBC & Chem 7: 11/28/23 10:54 11/28/23 10:54 Labs: Abnormal Lab Results - Last 24 Hours (Table) 11/27/23 11/28/23 11/28/23 Range/Units 12:05 06:47 06:47 Hgb 10.9 L (11.4-16.0) gm/dL Chloride 113 H (98-107) mmol/L Carbon Dioxide 20 L (22-30) mmol/L POC Glucose (mg/dL) 63 L (70-110) mg/dL ALT 158 H (4-34) U/L Alkaline Phosphatase 356 H (38-126) U/L Total Protein 5.2 L (6.3-8.2) g/dL Albumin 2.8 L (3.5-5.0) g/dL
--- NOTE | 2023-11-28 13:25 | P.DS ---
Providers Date of admission: 11/27/23 11:01 Expected date of discharge: 11/28/23 Attending physician: Ruiz Wagner MD Consults: 11/24/23 13:00 Consult Physician Routine Consulting Provider: Page Segovia Consult Reason/Comments: medical management Do you want consulting provider notified?: Already Contacted 11/25/23 07:44 Consult Physician Routine Consulting Provider: Richard Ruiz Consult Reason/Comments: gallstones Do you want consulting provider notified?: Already Contacted 11/26/23 10:03 Consult Physician Routine Consulting Provider: Geeta Seaman Consult Reason/Comments: elevated LFTS, possible ERCP Do you want consulting provider notified?: Yes Primary care physician: Randall Trejo Hospital Course: Discharge diagnosis 1. Acute cholecystitis status post laparoscopic cholecystectomy 2. Possible choledocholithiasis status post ERCP 3. Hospital course This is a 28-year-old female who presented with epigastric abdominal pain. She had mildly elevated LFTs. Gallbladder ultrasound with gallstones and findings consistent for acute cholecystitis. Patient is status post laparoscopic cholecystectomy. Patient's liver enzymes tend to increase after surgery. GI service was consulted. ERCP with biliary sphincterotomy and balloon sweep completed by GI service for possible choledocholithiasis. Patient's LFTs continue to trend downwards. She is tolerating diet. She is afebrile. She has been up and ambulating. She is stable for discharge. Please refer to chart for any further details. Physician Access Control Officer note has been reviewed by physician. Signing provider agrees with the documented findings, assessment, and plan of care. Patient Condition at Discharge: Stable Plan - Discharge Summary Discharge Rx Participant: Yes New Discharge Prescriptions: New Acetaminophen Tab [Tylenol Tab] 650 mg PO Q4H PRN #30 tablet PRN Reason: Pain Continue Vit No.180/Iron/Folic [ Plus Vitamin-Mineral] 1 tab PO DAILY Ibuprofen [Motrin] 600 mg PO Q6HR PRN #40 tab PRN Reason: Mild Pain (Scale 1 To 3) Discharge Medication List Vit No.180/Iron/Folic [ Plus Vitamin-Mineral] 1 tab PO DAILY 11/04/19 [History] Ibuprofen [Motrin] 600 mg PO Q6HR PRN #40 tab 11/20/23 [Rx] Acetaminophen Tab [Tylenol Tab] 650 mg PO Q4H PRN #30 tablet 11/28/23 [Rx] Follow up Appointment(s)/Referral(s): Randall Trejo MD [Primary Care Provider] - 1-2 days Richard Ruiz MD [STAFF PHYSICIAN] - 1 Week Activity/Diet/Wound Care/Special Instructions: No lifting over 10 pounds You may shower. No soaking or tub baths for 2 weeks Very light activity until you are reevaluated at your follow up appointment with your surgeon Discharge Disposition: HOME SELF-CARE
--- NOTE | 2023-11-29 11:03 | CDI ---
Documentation Clarification Form Date: 11/29/2023 10:54:43 AM From: Darlene Claudio Phone: Admit Date: 11/27/2023 11:01:00 AM Patient Name: Xi Villeda Visit Number: [id number] Discharge Date: 11/28/2023 02:35:00 PM ATTENTION: The Clinical Documentation Specialists (CDI) and [facility] Coding Staff appreciate your assistance in clarifying documentation. Please respond to the clarification below the line at the bottom and electronically sign. The CDI & [facility] Coding staff will review the response and follow-up if needed. Please note: Queries are made part of the Legal Health Record. If you have any questions, please contact the author of this message via ITS. Dr. Ruiz Wagner The final diagnosis of the pathology report states Mildchronic cholecystitis with cholelithiasisand cholesterolosis. Coding guidelines do not allow coding professionals to code based on pathology results; therefore, clarification is requested. History/risk factors: 28yo F, Cholecystitis, 4 days , anxiety Clinical Indicators: US gallbladder:Gallstonesare present. Equivocal secondary findings foracute cholecystitisnoted including positive sonographic Gonzalez sign. HIDA scan follow-upup should be considered. Treatment: Laparoscopiccholecystectomy Please clarify the acuity of cholecystitis with cholelithiasisand cholesterolosi: [ ] Acute cholecystitis with cholelithiasisand cholesterolosis. [ ] Chronic cholecystitis with cholelithiasisand cholesterolosis. [ x ] Acute onchronic cholecystitis with cholelithiasisand cholesterolosis. [ ] Other (please specify) [ ] Unable to determine (Template Last Revised: December 2020) MTDD
== END 2023-11-28 14:35 | disposition home or self-care (01) | DRG 419 ==
LOC: EC 13:08 → 4SSUR 17:43 → 4FBP 11-25 17:17 → OBSVTOIN 11-27 11:01
PROVIDERS: ADMIT Surgery; ATTEND Surgery
PROC: 0FT44ZZ Resection of Gallbladder, Percutaneous Endoscopic Approach (ICD-10-PCS; principal; 2023-11-25 09:55)
PROC: 0FC98ZZ Extirpation of Matter from Common Bile Duct, Via Natural or Artificial Opening Endoscopic (ICD-10-PCS; 2023-11-27)
DX: K80.12 Calculus of gallbladder with acute and chronic cholecystitis without obstruction (principal); O90.89 Other complications of the puerperium, not elsewhere classified; F41.9 Anxiety disorder, unspecified; E66.9 Obesity, unspecified
CPT/HCPCS: 36415; 43262; 71045; 74330; 76705; 80053; 81001; 82150; 83605; 83690; 84484; 84702; 85025; 85027; 85610; 85730; 87040; 88304; 93005; 96361; 96374; 96375; 99285